=== PATIENT | female | born 1945 | race Hispanic/Latino ===

== ENCOUNTER 2018-07-04 04:53 | Emergency (ER) | payer OTHER, MEDICAID, SELFPAY ==
[2018-07-04 05:10] VITALS: BMI 32.3
--- NOTE | 2018-07-04 05:23 | ED_ITS ---
HPI - Female Genitourinary General Chief complaint: Urogenital-Female Stated complaint: Thinks has UTI Time Seen by Provider: 07/04/18 05:00 Source: patient Mode of arrival: ambulatory Limitations: no limitations History of Present Illness HPI Narrative: 73-year-old diabetic female presents with family in the chief complaint of dysuria, frequency and urgency as well as suprapubic tenderness for the past few days. She is convinced she has a urinary tract infection. She denies nausea or vomiting. She had a low-grade fever but denies shaking chills. Patient denies any runny nose, sore throat, chest pain or shortness of breath. She denies any back pain, vaginal bleeding or discharge. MD Complaint: dysuria, UTI and pelvic pain Onset (ago): day(s) Severity: mild Quality: Aching and Burning Duration: constant Relieving factors: none Exacerbating factors: urination Urinary symptoms: Difficulty Urinating, Dysuria, Foul Smelling Urine, Frequency and Urgency Associated symptoms: denies other symptoms Related Data Previous Rx's Medication Instructions Recorded cephalexin [Keflex] 500 mg PO QID 7 Days #28 cap 07/04/18 Allergies Allergy/AdvReac Type Severity Reaction Status Date / Time No Known Drug Allergies Allergy Verified 07/04/18 05:12 Review of Systems Review of Systems All systems reviewed & are unremarkable except as noted in HPI and below Constitutional Denies chills, Reports fever(s), Denies lethargy and Denies weakness Eyes Denies change in vision, Denies eye discharge, Denies irritation and Denies loss of vision ENT Ears, Nose, Mouth, and Throat: Denies change in voice, Denies neck pain and Denies sore throat Cardiovascular Denies chest pain, Denies irregular heart rhythm, Denies lightheadedness, Denies palpitations, Denies dyspnea, Denies dyspnea on exertion and Denies orthopnea Respiratory Denies cough, Denies dyspnea, Denies dyspnea on exertion and Denies wheezing Gastrointestinal Gastrointestinal: Denies abdominal pain, Denies change in bowel habits, Denies diarrhea, Denies nausea and Denies vomiting Genitourinary Denies hematuria, Reports urinary frequency, Reports dysuria, Denies flank pain , Denies urinary incontinence and Reports urinary urgency Musculoskeletal Denies neck pain Integumentary/Breasts Denies pruritus, Denies erythema, Denies rash and Denies wounds Neurologic Denies confusion, Denies loss of vision and Denies weakness Psychiatric Denies anxiety, Denies confusion, Denies depression, Denies homicidal ideation and Denies suicidal ideation Endocrine Denies palpitations Hematologic/Lymphatic Denies easy bruising Allergic/Immunologic Denies wheezing Exam Narrative Exam Narrative: Pleasant 73-year-old female in no obvious distress. Awake, alert and oriented. No rigors Initial Vital Signs Initial Vital Signs: Vital Signs Temperature 98.9 F 07/04/18 06:36 Pulse Rate 90 07/04/18 06:36 Respiratory Rate 16 07/04/18 06:36 Blood Pressure 120/48 L 07/04/18 06:36 Pulse Oximetry 95 07/04/18 06:36 Const General: cooperative and well developed Nutritional Appearance: well nourished Orientation: alert, awake, oriented x3 and not confused HENMT Head: normocephalic and atraumatic Ears: external ears normal and TM's normal bilaterally Nose: external nose normal and No nasal discharge Face and sinus: sinuses nontender, face symmetric, no sinus tenderness and No dry mucous membranes Mouth: oral mucosae normal and moist mucous membranes Teeth and gingiva: dentition normal Throat: tonsils normal and uvula midline Neck Neck: normal visual inspection, trachea midline, No lymphadenopathy, No midline deformity and No JVD Lymphatic: No lymphedema Chest Chest: normal inspection of the chest Cardio Rate: regular rate Rhythm: regular rhythm Heart Sounds: no click, no gallops, no murmurs and no rubs Pulses: normal peripheral pulses GI Inspection: non-distended Palpation: soft, no hepatosplenomegaly, No guarding, No pulsatile mass and tender (Mild suprapubic tenderness) Auscultation: normal bowel sounds Back/Spine/Pelvis Back: No CVA tenderness Cervical Spine: cervical ROM normal and No pain with cervical ROM Thoracic/Lumbar Spine: thoracic and lumbar spine normal to inspection Skin General: no rashes or lesions noted, No jaundice and No petechiae Neuro General: alert, oriented x3, gait normal and no focal motor deficits Speech: speech normal Extrem General: full ROM, no clubbing, cyanosis or edema, no pedal edema and no calf tenderness Course Orders Ordered: ED Orders 07/04/18 05:10 Urine Culture Stat Urine Microscopic Stat 07/04/18 05:27 Basic Metabolic Panel Stat Complete Blood Count AUTO DIFF Stat Discontinued Medications Hydrocodone Bitart/Acetaminophen ([place] 5/325) 1 tab PO NOW ONE Stop: 07/04/18 05:15 Last Admin: 07/04/18 05:39 Dose: 1 tab Cephalexin HCl (Keflex) 500 mg PO NOW ONE Stop: 07/04/18 05:15 Last Admin: 07/04/18 05:39 Dose: 500 mg Vital Signs - 8 hr 07/04/18 06:36 Temperature 98.9 F Pulse Rate 90 Respiratory Rate 16 Blood Pressure 120/48 L Pulse Oximetry 95 MDM - Female Genitourinary Lab Data Result diagrams: 07/04/18 05:27 07/04/18 05:27 Lab Results 07/04/18 07/04/18 07/04/18 Range/Units 05:10 05:27 05:27 WBC 6.8 (4.5-11.0) X10^3/uL RBC 3.72 L (4.0-5.2) X10^6/uL Hgb 10.7 L (12.0-16.0) g/dL Hct 31.2 L (36-46) % MCV 84.1 (80-100) fL MCH 28.8 (26-34) PG MCHC 34.3 (30-36) % RDW 13.8 (11.6-14.8) % Plt Count 245 (150-400) X10^3/uL Neut % (Auto) 83.4 H (50-75) % Lymph % (Auto) 7.7 L (25-40) % [place] % (Auto) 8.4 (3-14) % Eos % (Auto) 0.3 L (2-4) % Baso % (Auto) 0.2 (0-2) % Neut # (Auto) 5700 (2911-8901) /uL Sodium 140 (137-145) mmol/L Potassium 3.5 (3.4-5.1) mmol/L Chloride 107 (98-107) mmol/L Carbon Dioxide 24 (22-32) mmol/L BUN 23 H (7-17) mg/dL Creatinine 0.90 (0.52-1.04) mg/dL Estimated GFR > 60.0 (>60) mL/min BUN/Creatinine Ratio 25.6 H (6-22) Glucose 259 H (80-110) mg/dL Calcium 8.9 (8.4-10.2) mg/dL Urine RBC None seen (0-5/HPF) Urine WBC >100/hpf H (0-5/HPF) Ur Squamous Epith Cells 1-5 /hpf Urine Bacteria Many (>30) H (None) Ur Culture Indicated? Specimen cultured Micro UA Comment Not Reportable Urine Dip Bedside Urine Glucose Negative Bedside Urine Bilirubin - Negative Bedside Urine Ketone - Negative Urine Specific [place] 1.015 Bedside Urine Occult Blood +/- Bedside Urine pH 6.0 Bedside Urine Protein ++ 100 Bedside Urine Urobilinogen - Negative Bedside Urine Nitrite - Negative Bedside Urine Leukocytes ++ 125 Esterase Discharge Plan Departure Patient Disposition: Home Clinical Impression: Urinary tract infection Discharge Date/Time: 07/04/18 06:38 Interventions: ED Discharge Assessment Last Done: 07/04/18 06:36 Instructions: DI for Urinary Tract Infection (UTI) Activity Restrictions/Additional Instructions: *You have been diagnosed with [acute urinary tract infection ] *What to do: *Take medications as directed *Follow up with your primary care provider in 2-3 days, call for an appointment. Let them know you were seen in the Emergency Department and that we ask that you be seen in follow up *Return to ER if you should have any new, worsening or concerning symptoms , such as [ worsening pain, vomiting, increased or persistent fever, shaking chills, or other bothersome symptoms] Prescriptions: New cephalexin [Keflex] 500 mg capsule 500 mg PO QID 7 Days Qty: 28 RF: 0
[2018-07-04] MEDS: cephALEXin 250 MG CAPSULE 500 MG PO (05:39)
[2018-07-04] MEDS: HYDROCODONE/ACET 5/325 TABLET 1 TAB PO (05:39)
[2018-07-04 06:36] VITALS: BP 120/48; PULSE 90; RESP 16; TEMP 37.2; O2SAT 95
== END 2018-07-04 06:38 | disposition home or self-care (01) ==
PROVIDERS: Emergency Provider Emergency Medicine
DX: N39.0 Urinary tract infection, site not specified (principal)
CPT/HCPCS: 36415; 80048; 81003; 81015; 85025; 87086

== ENCOUNTER 2018-07-04 13:40 | Emergency (ER) | payer OTHER, MEDICAID, SELFPAY ==
[2018-07-04 05:18] LABS: RBC Urine None Seen (0-5/HPF)
[2018-07-04 05:22] LABS: Bacteria Urine Many (>30); Culture Indicated Urine Specimen Cultured; Squamous Epithelial Cell Urine 1-5 /HPF; WBC Urine >100/HPF (0-5/HPF)
[2018-07-04 05:36] LABS: Add Manual Diff / Slide Review NO; Basophils Percent Auto 0.2 % (0-2); Eosinophils Percent Auto 0.3 % (2-4); Hematocrit 31.2 % (36-46); Hemoglobin 10.7 g/dL (12.0-16.0); Lymphocytes Percent Auto 7.7 % (25-40); Mean Corpuscular HGB Conc 34.3 % (30-36); Mean Corpuscular Hemoglobin 28.8 PG (26-34); Mean Corpuscular Volume 84.1 fL (80-100); Monocytes Percent Auto 8.4 % (3-14); Neutrophils Absolute Auto 5700 /uL (3000-5900); Neutrophils Percent Auto 83.4 % (50-75); Platelet Count 245 X10^3/uL (150-400); Red Blood Cell Count 3.72 X10^6/uL (4.0-5.2); Red Cell Distribution Width 13.8 % (11.6-14.8); White Blood Cell Count 6.8 X10^3/uL (4.5-11.0)
[2018-07-04 05:47] LABS: BUN Creatinine Ratio 25.6 (6-22); Blood Urea Nitrogen 23 mg/dL (7-17); Calcium 8.9 mg/dL (8.4-10.2); Carbon Dioxide 24 mmol/L (22-32); Chloride 107 mmol/L (98-107); Estimated Glomerular Filt Rate > 60.0 mL/min (>60); Glucose 259 mg/dL (80-110); HEMOLYSIS < 15 (0-50); Potassium 3.5 mmol/L (3.4-5.1); Sodium 140 mmol/L (137-145)
[2018-07-04 13:48] VITALS: BP 135/56; PULSE 120; RESP 22; TEMP 38.5; O2SAT 91
[2018-07-04] MEDS: CEFTRIAXONE 1 GM/50 ML FROZ.PIGGY IV (13:57)
[2018-07-04 14:14] LABS: Add Manual Diff / Slide Review NO; Basophils Percent Auto 0.1 % (0-2); Eosinophils Percent Auto 0.1 % (2-4); Hematocrit 30.8 % (36-46); Hemoglobin 10.3 g/dL (12.0-16.0); Lymphocytes Percent Auto 3.3 % (25-40); Mean Corpuscular HGB Conc 33.5 % (30-36); Mean Corpuscular Hemoglobin 28.5 PG (26-34); Mean Corpuscular Volume 85.1 fL (80-100); Monocytes Percent Auto 4.8 % (3-14); Neutrophils Absolute Auto 5500 /uL (3000-5900); Neutrophils Percent Auto 91.7 % (50-75); Platelet Count 218 X10^3/uL (150-400); Red Blood Cell Count 3.62 X10^6/uL (4.0-5.2)
--- NOTE | 2018-07-04 14:16 | PC.NURSE ---
Pt down to 88% on room air. Placed on 2L oxygen nasal cannula. Improved to 98%.
[2018-07-04 14:28] LABS: Alanine Aminotransferase 26 IU/L (9-52); Albumin 3.8 g/dL (3.5-5.0); Albumin Globulin Ratio 1.4 (1.0-2.8); Alkaline Phosphatase 72 U/L (38-126); Aspartate Aminotransferase 16 IU/L (14-36); BUN Creatinine Ratio 24.5 (6-22); Bilirubin Total 1.3 mg/dL (0.2-1.3); Blood Urea Nitrogen 27 mg/dL (7-17); Calcium 8.6 mg/dL (8.4-10.2); Carbon Dioxide 21 mmol/L (22-32); Chloride 105 mmol/L (98-107); Estimated Glomerular Filt Rate 48.8 mL/min (>60); Globulin 2.8 g/dL (1.7-4.1); Glucose 480 mg/dL (80-110); HEMOLYSIS < 15 (0-50); Sodium 138 mmol/L (137-145); Total Protein 6.6 g/dL (6.3-8.2)
--- NOTE | 2018-07-04 14:29 | ED.NAVMDI ---
HPI - Nausea/Vomiting/Diarrhea General Chief complaint: Nausea/Vomiting/Diarrhea Stated complaint: Nausea/Vomiting Time Seen by Provider: 07/04/18 13:46 Source: patient, family, EMS and old records reviewed Limitations: no limitations History of Present Illness HPI Narrative: Patient is a 73-year-old female who presents with was nausea and 1 episode of vomiting. She was seen evaluated here 5:00 a.m. this morning diagnosed a UTI and started on Keflex. She has since developed increasing weakness and a fever. She denies any pain except for when she urinates. Urine this morning actually did not grow anything but she does have painful frequent urination and is requesting he is a restaurant now. Related Data Home Medications Medication Instructions Recorded Confirmed atorvastatin 40 mg PO QPM 07/04/18 07/04/18 ibuprofen 1 tab PO TIDWM 07/04/18 07/04/18 insulin NPH isoph U-100 human 20 units SUBCUT DAILY 07/04/18 07/04/18 [Humulin N NPH Insulin KwikPen] insulin regular human [Humulin R 10 units SUBCUT TID 07/04/18 07/04/18 Regular U-100 Insuln] lisinopril 1 tab PO DAILY 07/04/18 07/04/18 Previous Rx's Medication Instructions Recorded cephalexin [Keflex] 500 mg PO QID 7 Days #28 cap 07/04/18 Allergies Allergy/AdvReac Type Severity Reaction Status Date / Time No Known Drug Allergies Allergy Verified 07/04/18 05:12 Review of Systems Review of Systems All systems reviewed & are unremarkable except as noted in HPI and below Constitutional Reports body ache(s), Reports chills and Reports fever(s) ENT Ears, Nose, Mouth, and Throat: Denies change in voice, Denies neck pain and Denies sore throat Cardiovascular Denies chest pain, Denies irregular heart rhythm, Denies lightheadedness, Denies palpitations, Denies dyspnea, Denies dyspnea on exertion and Denies orthopnea Respiratory Denies cough, Denies dyspnea, Denies dyspnea on exertion and Denies wheezing Gastrointestinal Gastrointestinal: Reports vomiting (x1) Genitourinary Reports as per HPI Musculoskeletal Denies neck pain Integumentary/Breasts Denies pruritus, Denies erythema, Denies rash and Denies wounds Endocrine Denies palpitations Allergic/Immunologic Denies wheezing [facility] Medical History Diabetes (Acute) Exam Initial Vital Signs Initial Vital Signs: Vital Signs Temperature 101.3 F H 07/04/18 13:48 Pulse Rate 120 H 07/04/18 13:48 Respiratory Rate 22 07/04/18 13:48 Blood Pressure 135/56 L 07/04/18 13:48 Pulse Oximetry 91 07/04/18 13:48 GENERAL: Alert elderly overweight female cooperative no acute distress HEENT: Head atraumatic,EOMI, pupils reactive, face symmetric, CARDIOVASCULAR: Regular rate and rhythm without murmurs, rubs or gallops. RESPIRATORY: Breath sounds equal bilaterally, no wheezes rales or rhonchi. ABDOMEN: Soft, nontender. Normoactive bowel sounds all 4 quadrants. No guarding or rebound. : No CVA tenderness EXTREMITIES: Normal range of motion, no clubbing or edema. Neurovascularly intact NEUROLOGICAL: Alert and oriented x4.Normal gait and speech. Cranial nerves II through XII grossly intact. SKIN: Warm, dry, no laceration, no petechiae, no rashes or lesions. Course Orders Ordered: ED Orders 07/04/18 14:01 Urine Culture Stat Urine Microscopic Stat 07/04/18 14:05 Blood Culture Stat Complete Blood Count AUTO DIFF Stat Comprehensive Metabolic Panel Stat Lactate (Lactic Acid) Stat Procalcitonin Stat Discontinued Medications Acetaminophen (Tylenol) 650 mg PO NOW ONE Stop: 07/04/18 14:31 Last Admin: 07/04/18 14:38 Dose: 650 mg Ceftriaxone Sodium/Dextrose (Rocephin) 1 gm in 50 mls @ 100 mls/hr IV NOW ONE Stop: 07/04/18 14:15 Last Infusion: 07/04/18 14:41 Dose: 0 mls/hr Admin: 07/04/18 13:57 Dose: 100 mls/hr Sodium Chloride (Normal Saline 0.9%) 1,000 mls @ 1,000 mls/hr IV BOLUS ONE Stop: 07/04/18 15:28 Last Admin: 07/04/18 14:41 Dose: 1,000 mls/hr Vital Signs - 8 hr 07/04/18 13:48 07/04/18 14:38 07/04/18 15:10 Temperature 101.3 F H 101.3 F H 100.0 F H Pulse Rate 120 H Respiratory Rate 22 Blood Pressure 135/56 L Blood Pressure [Left Arm] Pulse Oximetry 91 07/04/18 15:33 07/04/18 16:29 Temperature Pulse Rate 111 H 101 H Respiratory Rate 20 18 Blood Pressure 126/45 L Blood Pressure [Left Arm] 134/51 L Pulse Oximetry 100 94 MDM - Nausea/Vomiting/Diarrhea Lab Data Attestation: I reviewed the patient's lab results. Result diagrams: 07/04/18 14:05 07/04/18 14:05 Lab Results 07/04/18 07/04/18 07/04/18 Range/Units 14:01 14:05 14:05 WBC 6.0 (4.5-11.0) X10^3/uL RBC 3.62 L (4.0-5.2) X10^6/uL Hgb 10.3 L (12.0-16.0) g/dL Hct 30.8 L (36-46) % MCV 85.1 (80-100) fL MCH 28.5 (26-34) PG MCHC 33.5 (30-36) % RDW 14.0 (11.6-14.8) % Plt Count 218 (150-400) X10^3/uL Neut % (Auto) 91.7 H (50-75) % Lymph % (Auto) 3.3 L (25-40) % [place] % (Auto) 4.8 (3-14) % Eos % (Auto) 0.1 L (2-4) % Baso % (Auto) 0.1 (0-2) % Neut # (Auto) 5500 (1716-9779) /uL Sodium (137-145) mmol/L Potassium (3.4-5.1) mmol/L Chloride (98-107) mmol/L Carbon Dioxide (22-32) mmol/L BUN (7-17) mg/dL Creatinine (0.52-1.04) mg/dL Estimated GFR (>60) mL/min BUN/Creatinine Ratio (6-22) Glucose (80-110) mg/dL Lactate (0.7-2.1) mmol/L Calcium (8.4-10.2) mg/dL Total Bilirubin (0.2-1.3) mg/dL AST (14-36) IU/L ALT (9-52) IU/L Alkaline Phosphatase (38-126) U/L Total Protein (6.3-8.2) g/dL Albumin (3.5-5.0) g/dL Globulin (1.7-4.1) g/dL Albumin/Globulin Ratio (1.0-2.8) Procalcitonin 1.24 H (<0.5) ng/mL Urine RBC 1-5/hpf (0-5/HPF) Urine WBC 30-100/hpf H (0-5/HPF) Ur Squamous Epith Cells 1-5 /hpf Ur Transition Epith Cell 0-1/hpf (0-5/HPF) Urine Bacteria Few (2-10) H D (None) Hyaline Casts 1-5/lpf (None) Ur Culture Indicated? Specimen cultured Micro UA Comment Not Reportable 07/04/18 07/04/18 Range/Units 14:05 14:05 WBC (4.5-11.0) X10^3/uL RBC (4.0-5.2) X10^6/uL Hgb (12.0-16.0) g/dL Hct (36-46) % MCV (80-100) fL MCH (26-34) PG MCHC (30-36) % RDW (11.6-14.8) % Plt Count (150-400) X10^3/uL Neut % (Auto) (50-75) % Lymph % (Auto) (25-40) % [place] % (Auto) (3-14) % Eos % (Auto) (2-4) % Baso % (Auto) (0-2) % Neut # (Auto) (8360-7029) /uL Sodium 138 (137-145) mmol/L Potassium 4.0 (3.4-5.1) mmol/L Chloride 105 (98-107) mmol/L Carbon Dioxide 21 L (22-32) mmol/L BUN 27 H (7-17) mg/dL Creatinine 1.10 H (0.52-1.04) mg/dL Estimated GFR 48.8 L (>60) mL/min BUN/Creatinine Ratio 24.5 H (6-22) Glucose 480 H D (80-110) mg/dL Lactate 2.0 (0.7-2.1) mmol/L Calcium 8.6 (8.4-10.2) mg/dL Total Bilirubin 1.3 (0.2-1.3) mg/dL AST 16 (14-36) IU/L ALT 26 (9-52) IU/L Alkaline Phosphatase 72 (38-126) U/L Total Protein 6.6 (6.3-8.2) g/dL Albumin 3.8 (3.5-5.0) g/dL Globulin 2.8 (1.7-4.1) g/dL Albumin/Globulin Ratio 1.4 (1.0-2.8) Procalcitonin (<0.5) ng/mL Urine RBC (0-5/HPF) Urine WBC (0-5/HPF) Ur Squamous Epith Cells Ur Transition Epith Cell (0-5/HPF) Urine Bacteria (None) Hyaline Casts (None) Ur Culture Indicated? Micro UA Comment Point of Care Testing Glucose POC 420 Urine Dip Bedside Urine Glucose 1000 mg/dl Bedside Urine Bilirubin - Negative Bedside Urine Ketone +/- 5 Urine Specific [place] 1.020 Bedside Urine Occult Blood + Bedside Urine pH 6.0 Bedside Urine Protein ++ 100 Bedside Urine Urobilinogen - Negative Bedside Urine Nitrite - Negative Bedside Urine Leukocytes - Negative Esterase MDM Narrative Medical decision making narrative: Patient initially febrile and tachycardic but awake alert and able to answer questions. Vitals quickly improved with IV fluids and Tylenol. She has eat [employer] while in the emergency department. She does not appear toxic or septic. No leukocytosis or elevated lactic acid. His she has signs and symptoms consistent with UTI she is given 1 dose of Rocephin in the ED. She likely just needs to start her antibiotics. The daughter is picking them up they are ready. Patient is ready and able to go home. She lives with the daughter I have discussed warning signs with the daughter and when to return to the ED. All questions have been addressed. Discharge Plan Departure Patient Disposition: Home Clinical Impression: Urinary tract infection Discharge Date/Time: 07/04/18 16:31 Interventions: ED Discharge Assessment Last Done: 07/04/18 16:29 Instructions: DI for Urinary Tract Infection (UTI) Activity Restrictions/Additional Instructions: *You have been diagnosed with bladder infection *What to do: Drink all water and Gatorade, fever control with Tylenol or ibuprofen *Continue to take medications as directed -fill and take Keflex as previously prescribed -Tylenol 650 mg every 4-6 hours if needed for fever or pain *Follow up with your primary care provider in 2-3 days *Return to ER if you should have increasing weakness not able to tolerate antibiotics not drinking fluids, increasing pain, increasing confusion or any new, worsening or concerning symptoms Prescriptions: No Action cephalexin [Keflex] 500 mg capsule 500 mg PO QID 7 Days Qty: 28 RF: 0 atorvastatin 40 mg tablet 40 mg PO QPM RF: 0 ibuprofen 800 mg tablet 1 tab PO TIDWM RF: 0 insulin regular human [Humulin R Regular U-100 Insuln] 100 unit/mL solution 10 units subcut TID RF: 0 lisinopril 5 mg tablet 1 tab PO DAILY RF: 0 insulin NPH isoph U-100 human [Humulin N NPH Insulin KwikPen] 100 unit/mL (3 mL) insulin pen 20 units subcut DAILY RF: 0
[2018-07-04 14:33] LABS: RBC Urine 1-5/HPF (0-5/HPF); WBC Urine 30-100/HPF (0-5/HPF)
[2018-07-04 14:34] LABS: Bacteria Urine Few (2-10); Culture Indicated Urine Specimen Cultured; Hyaline Casts Urine 1-5/LPF; Squamous Epithelial Cell Urine 1-5 /HPF; Transitional Epi Cells Urine 0-1/HPF (0-5/HPF)
[2018-07-04 14:38] VITALS: TEMP 38.5
[2018-07-04] MEDS: ACETAMINOPHEN 325 MG TABLET 650 MG PO (14:38)
[2018-07-04] MEDS: SODIUM CHLORIDE 0.9% 1,000 ML 1000 ML IV (14:41)
[2018-07-04 14:54] LABS: Procalcitonin 1.24 ng/mL (<0.5)
[2018-07-04 15:10] VITALS: TEMP 37.8
[2018-07-04 15:33] VITALS: BP 134/51; PULSE 111; RESP 20; O2SAT 100
[2018-07-04 16:29] VITALS: BP 126/45; PULSE 101; RESP 18; O2SAT 94
--- NOTE | 2018-07-06 16:23 | PC.NURSE ---
Tried follow up phone call. Pt did speak kyrgyz, unable to completed survey.
--- NOTE | 2018-07-24 11:07 | PC.NURSE ---
Late entry ; Normal saline bolus 1000 mL stopped 07/04/18 at 1531.
== END 2018-07-04 16:31 | disposition home or self-care (01) ==
PROVIDERS: Emergency Medicine; Emergency Provider Emergency Medicine
DX: N39.0 Urinary tract infection, site not specified (principal)
CPT/HCPCS: 36415; 80048; 80053; 81003; 81015; 83605; 84145; 85025; 87040; 87077; 87086; 87186; 93005; 96361; 96365; 99283; 99284

== ENCOUNTER 2018-08-17 12:36 | Inpatient (IN) | payer OTHER, MEDICAID, SELFPAY ==
[2018-08-17] VITALS (8 sets, daily range): BP systolic 103–147; BP diastolic 45–70; PULSE 91–104; RESP 15–22; TEMP 36.6–37.7; O2SAT 93–98; BMI 34.6; BMI 32.6
--- NOTE | 2018-08-17 12:52 | ED.ABDPAIN ---
HPI - Abdominal Pain <Thalia Teixeira PA-C - Last Filed: 08/17/18 16:02> General Chief Complaint: Abdominal Pain Stated Complaint: pain in stomach,loss of appetite Time Seen by Provider: 08/17/18 12:52 Source: patient and family Mode of arrival: ambulatory Limitations: language barrier History of Present Illness HPI narrative: This 73-year-old female is brought in by her daughter/caregiver secondary to worsening abdominal pain over about 2 weeks. Her daughter states that she was treated here for a UTILast month and although urinary pain resolved, her mom never seemed quite back to herself, seeming more tired, down, and has had decreased appetite since. This is very atypical for her, usually a hearty either. For the last 2 weeks, she has admitted to postprandial pain and so has wanted to avoid foods. Patient states that she will have pain almost immediately after eating that is sharp and lasts about 15 min or so. She does not have any difficulty swallowing. She does not have any problems with fluids but her daughter notes that normally mom loves coffee and has not been drinking this. Daughter states that last night pain lasted all evening and kept her mom awake, which is atypical so she brought her in today. Patient states that she has not had nausea or vomiting. She denies any persistent urinary symptoms (frequency is typical for her and at baseline). She has not had any bowel habit changes or blood in the stools. She takes 800 mg ibuprofen t.i.d. for many years for her arthritis. Daughter states that mom cannot walk without it and will not get out of bed so they have continued it. Patient denies any recent fever or other illness since last seen here. She denies chest pain or dyspnea or other new pain besides the abdominal pain. They have been noting high blood sugars up in the 400 range at home. She has been taking her insulin and got 20 units as usual this morning. Related Data Home Medications Medication Instructions Recorded Confirmed atorvastatin 40 mg PO QPM 07/04/18 08/17/18 ibuprofen 1 tab PO TIDWM 07/04/18 08/17/18 insulin NPH isoph U-100 human 20 units SUBCUT DAILY 07/04/18 08/17/18 [Humulin N NPH Insulin KwikPen] insulin regular human [Humulin R 10 units SUBCUT TID 07/04/18 08/17/18 Regular U-100 Insuln] lisinopril 1 tab PO DAILY 07/04/18 08/17/18 Allergies Allergy/AdvReac Type Severity Reaction Status Date / Time No Known Drug Allergies Allergy Verified 07/04/18 05:12 Review of Systems <Thalia Teixeira PA-C - Last Filed: 08/17/18 16:02> Review of Systems All systems reviewed & are unremarkable except as noted in HPI and below Exam <Thalia Teixeira PA-C - Last Filed: 08/17/18 16:02> Narrative Exam Narrative: GENERAL APPEARANCE: Patient sitting comfortably, in no distress. HEENT: PERRL, EOMI, no scleral icterus NECK: Supple LUNGS: Clear to auscultation bilaterally. HEART: Rate and rhythm regular, normal S1 and S2, no S3 or S4. ABDOMEN: Soft, nondistended, bowel sounds present x 4 quadrants, no masses palpable, no hepatosplenomegaly. Tender over the left upper to mid quadrant without guarding or rebound. No tenderness elsewhere. No CVAT EXTREMITIES: No edema, no cyanosis DERMATOLOGIC: No jaundice or exanthem NEUROLOGIC: Alert and oriented with normal speech and coordination Initial Vital Signs Initial Vital Signs: Vital Signs Temperature 98.3 F 08/17/18 12:48 Pulse Rate 99 H 08/17/18 12:48 Respiratory Rate 18 08/17/18 12:48 Blood Pressure 118/45 L 08/17/18 12:48 Pulse Oximetry 95 08/17/18 12:48 <Clem Robles DO - Last Filed: 08/17/18 17:05> Initial Vital Signs Initial Vital Signs: Vital Signs Temperature 98.3 F 08/17/18 12:48 Pulse Rate 99 H 08/17/18 12:48 Respiratory Rate 18 08/17/18 12:48 Blood Pressure 118/45 L 08/17/18 12:48 Pulse Oximetry 95 08/17/18 12:48 Course <SHASHANK Felix Last Filed: 08/17/18 16:02> Additional Information: Reviewed findings with attending Dr. Robles, patient is slightly acidotic, worsening hyperglycemia, elevated ketones (has not left urine yet), no anion gap. He advises admission given patient's worsening blood sugars, persistent and worsening abdominal pain. Spoke with Dr. Bocanegra blown film extrusion operator hospitalist who will see patient here (we have daughter waiting to translate). I was waiting on CT to discuss with her given change in the patient's creatinine clearance since last visit. She requested proceeding with CT. She will admit to ICU. CT results pending at time of transfer to ED Orders Ordered: ED Orders 08/17/18 12:54 Lactate (Lactic Acid) Stat Venous Blood Gas Stat 08/17/18 13:00 Complete Blood Count AUTO DIFF Stat Comprehensive Metabolic Panel Stat Ketones (Beta-Hydroxybutyrate) Stat Procalcitonin Stat Venous Blood Gas Stat 08/17/18 13:24 EKG-12 Lead Stat 08/17/18 13:37 CT abdomen pelvis w con Stat 08/17/18 14:25 Blood Culture Stat 08/17/18 15:00 Urine Culture Stat Urine Microscopic Stat 08/17/18 18:00 Basic Metabolic Panel Q4H 08/17/18 22:00 Basic Metabolic Panel Q4H 08/18/18 02:00 Basic Metabolic Panel Q4H 08/18/18 05:00 Complete Blood Count AUTO DIFF Routine 08/18/18 06:00 Basic Metabolic Panel Q4H Dextrose (D50w) 25 gm IV PRN PRN PRN Reason: Hypoglycemia Heparin Sodium (Porcine) (Heparin) 5,000 unit SUBCUT BID GANESH Sodium Chloride (Normal Saline 0.9%) 1,000 mls @ 150 mls/hr IV CONT GANESH Stop: 09/16/18 22:09 Last Admin: 08/17/18 16:00 Dose: 150 mls/hr Potassium Chloride 40 meq/ (Sodium Chloride) 520 mls @ 130 mls/hr IV NOW ONE Stop: 08/17/18 19:22 Last Admin: 08/17/18 16:27 Dose: Not Given Ceftriaxone Sodium/Dextrose (Rocephin) 1 gm in 50 mls @ 100 mls/hr IV Q24H GANESH Insulin Human Regular 100 unit (/ Sodium Chloride) 100 mls @ 6 mls/hr IV TITRATE GANESH; Protocol Last Admin: 08/17/18 16:26 Dose: 13.3 units/hr, 13.3 mls/hr Morphine Sulfate (Morphine) 2 mg IV Q4HR PRN PRN Reason: ABDOMINAL PAIN Discontinued Medications Sodium Chloride (Normal Saline 0.9%) 1,000 mls @ 1,000 mls/hr IV BOLUS ONE Stop: 08/17/18 13:53 Last Infusion: 08/17/18 13:57 Dose: 0 mls/hr Admin: 08/17/18 13:09 Dose: 1,000 mls/hr Sodium Chloride (Normal Saline 0.9%) 1,000 mls @ 1,000 mls/hr IV BOLUS ONE Stop: 08/17/18 14:52 Last Infusion: 08/17/18 14:58 Dose: 0 mls/hr Admin: 08/17/18 13:58 Dose: 1,000 mls/hr Potassium Chloride 20 meq/ (Sodium Chloride) 260 mls @ 130 mls/hr IV NOW ONE Stop: 08/17/18 16:29 Last Admin: 08/17/18 14:47 Dose: 130 mls/hr Insulin Human Regular (Humulin R) 10 unit IV NOW ONE Stop: 08/17/18 14:31 Last Admin: 08/17/18 14:38 Dose: 10 unit Vital Signs - 8 hr 08/17/18 12:48 08/17/18 13:14 08/17/18 14:00 Temperature 98.3 F Pulse Rate 99 H 91 H 99 H Respiratory Rate 18 18 15 Blood Pressure 118/45 L Blood Pressure [Left Arm] 103/49 L 126/49 L Pulse Oximetry 95 93 98 08/17/18 14:31 08/17/18 15:39 08/17/18 16:15 Temperature 97.9 F Pulse Rate 94 H 99 H 98 H Respiratory Rate 17 18 19 Blood Pressure 122/58 L 147/70 H Blood Pressure [Left Arm] 138/53 L Pulse Oximetry 98 96 97 <Clem Robles DO - Last Filed: 08/17/18 17:05> Orders Ordered: ED Orders 08/17/18 12:54 Lactate (Lactic Acid) Stat Venous Blood Gas Stat 08/17/18 13:00 Complete Blood Count AUTO DIFF Stat Comprehensive Metabolic Panel Stat Ketones (Beta-Hydroxybutyrate) Stat Procalcitonin Stat Venous Blood Gas Stat 08/17/18 13:24 EKG-12 Lead Stat 08/17/18 13:37 CT abdomen pelvis w con Stat 08/17/18 14:25 Blood Culture Stat 08/17/18 15:00 Urine Culture Stat Urine Microscopic Stat 08/17/18 18:00 Basic Metabolic Panel Q4H 08/17/18 22:00 Basic Metabolic Panel Q4H 08/18/18 02:00 Basic Metabolic Panel Q4H 08/18/18 05:00 Complete Blood Count AUTO DIFF Routine 08/18/18 06:00 Basic Metabolic Panel Q4H Dextrose (D50w) 25 gm IV PRN PRN PRN Reason: Hypoglycemia Heparin Sodium (Porcine) (Heparin) 5,000 unit SUBCUT BID GANESH Sodium Chloride (Normal Saline 0.9%) 1,000 mls @ 150 mls/hr IV CONT GANESH Stop: 09/16/18 22:09 Last Admin: 08/17/18 16:00 Dose: 150 mls/hr Potassium Chloride 40 meq/ (Sodium Chloride) 520 mls @ 130 mls/hr IV NOW ONE Stop: 08/17/18 19:22 Last Admin: 08/17/18 16:27 Dose: Not Given Ceftriaxone Sodium/Dextrose (Rocephin) 1 gm in 50 mls @ 100 mls/hr IV Q24H GANESH Insulin Human Regular 100 unit (/ Sodium Chloride) 100 mls @ 6 mls/hr IV TITRATE GANESH; Protocol Last Admin: 08/17/18 16:26 Dose: 13.3 units/hr, 13.3 mls/hr Morphine Sulfate (Morphine) 2 mg IV Q4HR PRN PRN Reason: ABDOMINAL PAIN Discontinued Medications Sodium Chloride (Normal Saline 0.9%) 1,000 mls @ 1,000 mls/hr IV BOLUS ONE Stop: 08/17/18 13:53 Last Infusion: 08/17/18 13:57 Dose: 0 mls/hr Admin: 08/17/18 13:09 Dose: 1,000 mls/hr Sodium Chloride (Normal Saline 0.9%) 1,000 mls @ 1,000 mls/hr IV BOLUS ONE Stop: 08/17/18 14:52 Last Infusion: 08/17/18 14:58 Dose: 0 mls/hr Admin: 08/17/18 13:58 Dose: 1,000 mls/hr Potassium Chloride 20 meq/ (Sodium Chloride) 260 mls @ 130 mls/hr IV NOW ONE Stop: 08/17/18 16:29 Last Admin: 08/17/18 14:47 Dose: 130 mls/hr Insulin Human Regular (Humulin R) 10 unit IV NOW ONE Stop: 08/17/18 14:31 Last Admin: 08/17/18 14:38 Dose: 10 unit Vital Signs - 8 hr 08/17/18 12:48 08/17/18 13:14 08/17/18 14:00 Temperature 98.3 F Pulse Rate 99 H 91 H 99 H Respiratory Rate 18 18 15 Blood Pressure 118/45 L Blood Pressure [Left Arm] 103/49 L 126/49 L Pulse Oximetry 95 93 98 08/17/18 14:31 08/17/18 15:39 08/17/18 16:15 Temperature 97.9 F Pulse Rate 94 H 99 H 98 H Respiratory Rate 17 18 19 Blood Pressure 122/58 L 147/70 H Blood Pressure [Left Arm] 138/53 L Pulse Oximetry 98 96 97 MDM - Abdominal Pain <Thalia Teixeira PA-C - Last Filed: 08/17/18 16:02> Lab Data Attestation: I reviewed the patient's lab results. Result diagrams: 08/17/18 13:00 08/17/18 13:00 Lab Results 08/17/18 08/17/18 08/17/18 Range/Units 12:54 13:00 13:00 WBC 11.8 H (4.5-11.0) X10^3/uL RBC 3.52 L (4.0-5.2) X10^6/uL Hgb 9.5 L (12.0-16.0) g/dL Hct 29.3 L (36-46) % MCV 83.3 (80-100) fL MCH 26.9 (26-34) PG MCHC 32.3 (30-36) % RDW 14.2 (11.6-14.8) % Plt Count 304 (150-400) X10^3/uL Neut % (Auto) 83.9 H (50-75) % Lymph % (Auto) 9.6 L (25-40) % [place] % (Auto) 6.3 (3-14) % Eos % (Auto) 0.0 L (2-4) % Baso % (Auto) 0.2 (0-2) % Neut # (Auto) 9900 H (1449-3726) /uL Sodium (137-145) mmol/L Potassium (3.4-5.1) mmol/L Chloride (98-107) mmol/L Carbon Dioxide (22-32) mmol/L BUN (7-17) mg/dL Creatinine (0.52-1.04) mg/dL Estimated GFR (>60) mL/min BUN/Creatinine Ratio (6-22) Glucose (80-110) mg/dL Lactate 1.6 (0.7-2.1) mmol/L Calcium (8.4-10.2) mg/dL Total Bilirubin (0.2-1.3) mg/dL AST (14-36) IU/L ALT (9-52) IU/L Alkaline Phosphatase (38-126) U/L Total Protein (6.3-8.2) g/dL Albumin (3.5-5.0) g/dL Globulin (1.7-4.1) g/dL Albumin/Globulin Ratio (1.0-2.8) Procalcitonin 2.77 H (<0.5) ng/mL Urine RBC (0-5/HPF) Urine WBC (0-5/HPF) Ur Squamous Epith Cells Urine Bacteria (None) Ur Culture Indicated? Micro UA Comment Ketones (<0.27) mmol/L 08/17/18 08/17/18 Range/Units 13:00 15:00 WBC (4.5-11.0) X10^3/uL RBC (4.0-5.2) X10^6/uL Hgb (12.0-16.0) g/dL Hct (36-46) % MCV (80-100) fL MCH (26-34) PG MCHC (30-36) % RDW (11.6-14.8) % Plt Count (150-400) X10^3/uL Neut % (Auto) (50-75) % Lymph % (Auto) (25-40) % [place] % (Auto) (3-14) % Eos % (Auto) (2-4) % Baso % (Auto) (0-2) % Neut # (Auto) (4632-1893) /uL Sodium 132 L (137-145) mmol/L Potassium 3.6 (3.4-5.1) mmol/L Chloride 97 L (98-107) mmol/L Carbon Dioxide 20 L (22-32) mmol/L BUN 33 H (7-17) mg/dL Creatinine 1.60 H (0.52-1.04) mg/dL Estimated GFR 31.7 L (>60) mL/min BUN/Creatinine Ratio 20.6 (6-22) Glucose 552 H* (80-110) mg/dL Lactate (0.7-2.1) mmol/L Calcium 8.9 (8.4-10.2) mg/dL Total Bilirubin 0.8 (0.2-1.3) mg/dL AST 13 L (14-36) IU/L ALT 19 (9-52) IU/L Alkaline Phosphatase 89 (38-126) U/L Total Protein 6.7 (6.3-8.2) g/dL Albumin 3.7 (3.5-5.0) g/dL Globulin 3.0 (1.7-4.1) g/dL Albumin/Globulin Ratio 1.2 (1.0-2.8) Procalcitonin (<0.5) ng/mL Urine RBC 1-5/hpf (0-5/HPF) Urine WBC 30-100/hpf H (0-5/HPF) Ur Squamous Epith Cells 1-5 /hpf Urine Bacteria Many (>30) H (None) Ur Culture Indicated? Specimen cultured Micro UA Comment Not Reportable Ketones 0.43 H (<0.27) mmol/L Point of care testing: Point of Care Testing Glucose POC 262 Urine Dip Bedside Urine Glucose 1000 mg/dl Bedside Urine Bilirubin - Negative Bedside Urine Ketone - Negative Urine Specific [place] 1.015 Bedside Urine Occult Blood +/- Bedside Urine pH 6.0 Bedside Urine Protein + 30 Bedside Urine Urobilinogen - Negative Bedside Urine Nitrite + Positive Bedside Urine Leukocytes + 70 Esterase ECG Data Attestation: I personally reviewed and interpreted this ECG as follows: (Sinus rhythm with rate 88, normal axis, nonspecific T wave changes) Prior ECG tracings: not available for review <Clem Robles DO - Last Filed: 08/17/18 17:05> Lab Data Lab Results 08/17/18 08/17/18 08/17/18 Range/Units 12:54 13:00 13:00 WBC 11.8 H (4.5-11.0) X10^3/uL RBC 3.52 L (4.0-5.2) X10^6/uL Hgb 9.5 L (12.0-16.0) g/dL Hct 29.3 L (36-46) % MCV 83.3 (80-100) fL MCH 26.9 (26-34) PG MCHC 32.3 (30-36) % RDW 14.2 (11.6-14.8) % Plt Count 304 (150-400) X10^3/uL Neut % (Auto) 83.9 H (50-75) % Lymph % (Auto) 9.6 L (25-40) % [place] % (Auto) 6.3 (3-14) % Eos % (Auto) 0.0 L (2-4) % Baso % (Auto) 0.2 (0-2) % Neut # (Auto) 9900 H (6522-9361) /uL Sodium (137-145) mmol/L Potassium (3.4-5.1) mmol/L Chloride (98-107) mmol/L Carbon Dioxide (22-32) mmol/L BUN (7-17) mg/dL Creatinine (0.52-1.04) mg/dL Estimated GFR (>60) mL/min BUN/Creatinine Ratio (6-22) Glucose (80-110) mg/dL Lactate 1.6 (0.7-2.1) mmol/L Calcium (8.4-10.2) mg/dL Total Bilirubin (0.2-1.3) mg/dL AST (14-36) IU/L ALT (9-52) IU/L Alkaline Phosphatase (38-126) U/L Total Protein (6.3-8.2) g/dL Albumin (3.5-5.0) g/dL Globulin (1.7-4.1) g/dL Albumin/Globulin Ratio (1.0-2.8) Procalcitonin 2.77 H (<0.5) ng/mL Urine RBC (0-5/HPF) Urine WBC (0-5/HPF) Ur Squamous Epith Cells Urine Bacteria (None) Ur Culture Indicated? Micro UA Comment Ketones (<0.27) mmol/L 08/17/18 08/17/18 Range/Units 13:00 15:00 WBC (4.5-11.0) X10^3/uL RBC (4.0-5.2) X10^6/uL Hgb (12.0-16.0) g/dL Hct (36-46) % MCV (80-100) fL MCH (26-34) PG MCHC (30-36) % RDW (11.6-14.8) % Plt Count (150-400) X10^3/uL Neut % (Auto) (50-75) % Lymph % (Auto) (25-40) % [place] % (Auto) (3-14) % Eos % (Auto) (2-4) % Baso % (Auto) (0-2) % Neut # (Auto) (1234-3426) /uL Sodium 132 L (137-145) mmol/L Potassium 3.6 (3.4-5.1) mmol/L Chloride 97 L (98-107) mmol/L Carbon Dioxide 20 L (22-32) mmol/L BUN 33 H (7-17) mg/dL Creatinine 1.60 H (0.52-1.04) mg/dL Estimated GFR 31.7 L (>60) mL/min BUN/Creatinine Ratio 20.6 (6-22) Glucose 552 H* (80-110) mg/dL Lactate (0.7-2.1) mmol/L Calcium 8.9 (8.4-10.2) mg/dL Total Bilirubin 0.8 (0.2-1.3) mg/dL AST 13 L (14-36) IU/L ALT 19 (9-52) IU/L Alkaline Phosphatase 89 (38-126) U/L Total Protein 6.7 (6.3-8.2) g/dL Albumin 3.7 (3.5-5.0) g/dL Globulin 3.0 (1.7-4.1) g/dL Albumin/Globulin Ratio 1.2 (1.0-2.8) Procalcitonin (<0.5) ng/mL Urine RBC 1-5/hpf (0-5/HPF) Urine WBC 30-100/hpf H (0-5/HPF) Ur Squamous Epith Cells 1-5 /hpf Urine Bacteria Many (>30) H (None) Ur Culture Indicated? Specimen cultured Micro UA Comment Not Reportable Ketones 0.43 H (<0.27) mmol/L Point of care testing: Point of Care Testing Glucose POC 262 Urine Dip Bedside Urine Glucose 1000 mg/dl Bedside Urine Bilirubin - Negative Bedside Urine Ketone - Negative Urine Specific [place] 1.015 Bedside Urine Occult Blood +/- Bedside Urine pH 6.0 Bedside Urine Protein + 30 Bedside Urine Urobilinogen - Negative Bedside Urine Nitrite + Positive Bedside Urine Leukocytes + 70 Esterase Discharge Plan Departure Patient Disposition: Admitted As Inpatient Clinical Impression: DKA (diabetic ketoacidoses), Postprandial abdominal pain in left upper quadrant Discharge Date/Time: 08/17/18 15:45 Interventions: ED Discharge Assessment Last Done: 08/17/18 15:39 Admit Date/Time: 08/17/18 15:07 Admit Provider: Radha Bocanegra <Clem Robles DO - Last Filed: 08/17/18 17:05> Cosign ED Attending Sabino Attestation: I was available for consultation during this patient's emergency department encounter
[2018-08-17] MEDS: SODIUM CHLORIDE 0.9% 1,000 ML 1000 ML IV ×2 (13:09→13:58)
[2018-08-17 13:20] LABS: Add Manual Diff / Slide Review NO; Basophils Percent Auto 0.2 % (0-2); Hematocrit 29.3 % (36-46); Hemoglobin 9.5 g/dL (12.0-16.0); Lymphocytes Percent Auto 9.6 % (25-40); Mean Corpuscular HGB Conc 32.3 % (30-36); Mean Corpuscular Hemoglobin 26.9 PG (26-34); Mean Corpuscular Volume 83.3 fL (80-100); Monocytes Percent Auto 6.3 % (3-14); Neutrophils Absolute Auto 9900 /uL (3000-5900); Neutrophils Percent Auto 83.9 % (50-75); Platelet Count 304 X10^3/uL (150-400); Red Blood Cell Count 3.52 X10^6/uL (4.0-5.2); Red Cell Distribution Width 14.2 % (11.6-14.8); White Blood Cell Count 11.8 X10^3/uL (4.5-11.0)
[2018-08-17 13:25] LABS: HEMOLYSIS < 15 (0-50)
[2018-08-17 13:30] LABS: Alanine Aminotransferase 19 IU/L (9-52); Albumin 3.7 g/dL (3.5-5.0); Albumin Globulin Ratio 1.2 (1.0-2.8); Alkaline Phosphatase 89 U/L (38-126); Aspartate Aminotransferase 13 IU/L (14-36); BUN Creatinine Ratio 20.6 (6-22); Bilirubin Total 0.8 mg/dL (0.2-1.3); Blood Urea Nitrogen 33 mg/dL (7-17); Calcium 8.9 mg/dL (8.4-10.2); Carbon Dioxide 20 mmol/L (22-32); Chloride 97 mmol/L (98-107); Estimated Glomerular Filt Rate 31.7 mL/min (>60); Potassium 3.6 mmol/L (3.4-5.1); Sodium 132 mmol/L (137-145); Total Protein 6.7 g/dL (6.3-8.2)
[2018-08-17 13:35] LABS: Lactate (Lactic Acid) 1.6 mmol/L (0.7-2.1)
[2018-08-17 13:37] LABS: Ketones (Beta-Hydroxybutyrate) 0.43 mmol/L (<0.27)
--- NOTE | 2018-08-17 13:37 | DI.CT.S_ITS ---
PROCEDURE: CT ABDOMEN PELVIS W CON INDICATIONS: L. UQ, mid pain, post prandial TECHNIQUE: After the administration of intravenous contrast, 5 mm thick sections acquired from the diaphragm to the symphysis. 5 mm coronal and sagittal reformats were acquired. For radiation dose reduction, the following was used: automated exposure control, adjustment of mA and/or kV according to patient size. COMPARISON: None. FINDINGS: Image quality: Mild motion is present, limiting areas evaluation. ABDOMEN: Lung bases: Lung bases are clear. Heart size is normal. Solid organs: Liver is normal in size and enhancement. Gallbladder is unremarkable. Biliary system is non dilated. Pancreas enhances normally. Spleen is normal in size and enhancement. 8mm left adrenal nodule is present. Left kidney demonstrates a slightly edematous appearance. Contrast enhancement is somewhat heterogeneous. No nephro or ureterolithiasis. Peritoneum and bowel: Bowel loops demonstrate normal wall thickness and caliber. No free fluid or air. Nodes and vessels: No retroperitoneal or mesenteric adenopathy by size criteria. Aorta and inferior vena cava are normal in size. Miscellaneous: No ventral hernias. PELVIS: Genitourinary: Bladder wall thickness is normal. Miscellaneous: No inguinal hernias or adenopathy. Bones: No suspicious bony lesions. No vertebral body compression fractures. IMPRESSION: 1. Slightly edematous appearance of the left kidney with perirenal stranding and slight heterogeneous appearance of enhancement. Although motion is present within this region, limiting evaluation of contrast enhancement, overall appearance raises concern for pyelonephritis. Recommend correlation to urinalysis. 2. 8mm left adrenal nodule. It is overall nonspecific on the basis of this examination no priors are available for comparison. Recommend interval imaging followup as indicated. Dictated by: Bess Jacobs M.D. on 08/17/2018 at 15:50 Approved by: Bess Jacobs M.D. on 08/17/2018 at 15:56
[2018-08-17 13:41] LABS: Glucose 552 mg/dL (80-110)
[2018-08-17 13:47] LABS: Procalcitonin 2.77 ng/mL (<0.5)
[2018-08-17 13:49] LABS: HCO3 VBG 20 mmol/L (24-28); Oxygen Saturation VBG 97 % (70-75); PCO2 VBG 34.4 mmHg (45-50); PO2 VBG 91 mmHg (35-45); Total CO2 VBG 21 mmol/L (24-29); pH VBG 7.37 (7.31-7.41)
--- NOTE | 2018-08-17 14:08 | PC.NURSE ---
Dr Bocanegra here to evaluate pt for admit. 2nd liter NS up and running
--- NOTE | 2018-08-17 14:31 | P.HP_ITS ---
History of Present Illness Date Patient Seen: 08/17/18 Time Patient Seen: 14:29 Chief complaint: pain in stomach,loss of appetite Narrative: 73-year-old female with past medical history insulin-dependent diabetes mellitus, hypertension, hyperlipidemia, osteoporosis, and osteoarthritis presented to emergency department with abdominal pain. Patient is Citizen Of [place]-speaking, with her daughter, who is her caregiver, at bedside providing most of the history and interpreting. As per patient and the daughter , patient has developed left lower quadrant abdominal pain for about 5 days. This pain is in left lower quadrant region, pressure-like, nonradiating, 7/10 duration. The pain occurs when patient eats, causing patient to decreased p.o. intake in avoidance of pain. The pain would last anywhere from 0.5 hr to 1 hr with each occurrence, however was constant throughout the night last night prior to admission. Patient denies any fevers or chills, nausea or vomiting, diarrhea or constipation. Patient denies any melenic stools or bright red blood per rectum. Patient denies any dysuria, hematuria. As per records, patient was treated for UTI with Keflex on 07/04/2018 ED presentation. For the past few days, as per family, patient's p.o. has significantly decreased, although her blood glucose has been on the rise. One day prior to admission patient's blood glucose has been consistently elevated 300 to 500s, and did not decrease with doubling the Humulin R dose of insulin. On admission to the hospital, patient's vital signs are stable. Lab work revealed WBCs of 11.8, hemoglobin 9.5, hematocrit 29.3, platelets 304. Sodium is 132, potassium 3.6, chloride 97, bicarb 20, BUN 33, creatinine 1.6, glucose 552. LFTs were normal. Lactate 1.6, procalcitonin 2.7, VBG showing pH of 7.36. Toxicology positive for ketones at 0.43. Anion gap 15. Patient was given 1 L NS bolus in ED and is admitted for DKA management and further workup of abdominal pain. Patient History Medical History DKA (diabetic ketoacidoses) (Acute) HLD (hyperlipidemia) (Chronic) HTN (hypertension) (Chronic) Insulin dependent diabetes mellitus (Chronic) Osteoarthritis (Chronic) Osteoporosis (Chronic) Diabetes (Acute) Family & Social History Safety & Behavioral: Feels Safe in Current Yes Environment Tobacco & Substance use: Smoking Status Never smoker alcohol intake frequency Denies Substance Use Type does not use Meds Home Medications Medication Instructions Recorded Confirmed Type atorvastatin 40 mg PO QPM 07/04/18 08/17/18 History ibuprofen 1 tab PO TIDWM 07/04/18 08/17/18 History insulin NPH isoph U-100 human 20 units SUBCUT DAILY 07/04/18 08/17/18 History [Humulin N NPH Insulin KwikPen] insulin regular human [Humulin R 10 units SUBCUT TID 07/04/18 08/17/18 History Regular U-100 Insuln] lisinopril 1 tab PO DAILY 07/04/18 08/17/18 History Allergies Allergy/AdvReac Type Severity Reaction Status Date / Time No Known Drug Allergies Allergy Verified 07/04/18 05:12 Review of Systems Review of Systems 10-point ROS reviewed and found negative with exception of as above Exam Vital Signs (past 8 hours): - 08/17/18 12:48 08/17/18 13:14 08/17/18 14:00 Temperature 98.3 F Pulse Rate 99 H 91 H 99 H Respiratory Rate 18 18 15 Blood Pressure 118/45 L Blood Pressure [Left Arm] 103/49 L 126/49 L Pulse Oximetry 95 93 98 Oxygen Delivery Method Room Air Narrative Exam Narrative: General: No acute distress, AAO x3 HEENT: PERRLA bilaterally, dry mucous membranes Neck: Supple, no LAD or JVD CV: Regular rate rhythm, no murmurs or gallops GI: Positive tenderness to palpation in left lower quadrant. Positive bowel sounds in all quadrants. No organomegaly Musculoskeletal: Normal range of motion Extremities: No edema noted Skin: No bruising or lesions noted Neuro: No focal deficits Psych: Mood is appropriate, no agitation Objective Labs Result Diagrams: 08/17/18 13:00 08/17/18 13:00 Labs: Laboratory Results - last 24 hr 08/17/18 08/17/18 08/17/18 12:54 13:00 13:00 WBC 11.8 H RBC 3.52 L Hgb 9.5 L Hct 29.3 L MCV 83.3 MCH 26.9 MCHC 32.3 RDW 14.2 Plt Count 304 Neut % (Auto) 83.9 H Lymph % (Auto) 9.6 L [place] % (Auto) 6.3 Eos % (Auto) 0.0 L Baso % (Auto) 0.2 Neut # (Auto) 9900 H Sodium Potassium Chloride Carbon Dioxide BUN Creatinine Estimated GFR BUN/Creatinine Ratio Glucose Lactate 1.6 Calcium Total Bilirubin AST ALT Alkaline Phosphatase Total Protein Albumin Globulin Albumin/Globulin Ratio Procalcitonin 2.77 H Ketones 08/17/18 13:00 WBC RBC Hgb Hct MCV MCH MCHC RDW Plt Count Neut % (Auto) Lymph % (Auto) [place] % (Auto) Eos % (Auto) Baso % (Auto) Neut # (Auto) Sodium 132 L Potassium 3.6 Chloride 97 L Carbon Dioxide 20 L BUN 33 H Creatinine 1.60 H Estimated GFR 31.7 L BUN/Creatinine Ratio 20.6 Glucose 552 H* Lactate Calcium 8.9 Total Bilirubin 0.8 AST 13 L ALT 19 Alkaline Phosphatase 89 Total Protein 6.7 Albumin 3.7 Globulin 3.0 Albumin/Globulin Ratio 1.2 Procalcitonin Ketones 0.43 H Assessment & Plan Plan: Assessment/Plan Narrative: 73-year-old female with past medical history insulin-dependent diabetes mellitus , hypertension, hyperlipidemia, osteoporosis, and osteoarthritis presented to emergency department with abdominal pain. She was found to be in diabetic ketoacidosis and with acute kidney injury. She is admitted for further management of DKA as well as BESSY and further workup of abdominal pain. 1. Diabetic ketoacidosis - blood glucose 552, ketones 0.43, pH 7.36, bicarb 20, AG 15 - will admit patient to ICU and initiate insulin drip per DKA protocol - patient received 1 L NS bolus in ED, will continue 0.9 NS at 150 cc/hour with K rider - will continue blood glucose checks q.1 hour, and BMP q.4 hours until anion gap closes and blood glucose normalizes - Zofran IV as needed for nausea, morphine IV as needed for pain 2. LLQ abdominal pain - differentials: Pyelonephritis versus diverticulitis versus lithiasis - WBC 11.8, patient is afebrile and hemodynamically stable - lactic acid 1.6, but procalcitonin is 2.7 - will get CT abdomen pelvis with contrast to look for the cause of abdominal pain - if infectious etiology is suspected, will initiate IV antibiotics 3. Acute kidney injury - likely due to dehydration, given patient's decrease in p.o. intake - BUN 33, creatinine 1.6. Baseline creatinine is 1.0 one month ago - patient received 1 L NS bolus in ED, will continue maintenance of 0.9 NS at 150 cc an hour with K rider - monitor renal function - avoid nephrotoxins 4. Hypertension - patient is on lisinopril 20 mg daily - will hold lisinopril in light of acute kidney injury, and give labetalol 10 mg IV as needed for blood pressure >180/100 - monitor blood pressure 5. Hyperlipidemia - resume atorvastatin 40 mg q.h.s. 6. Osteoarthritis - patient takes ibuprofen 3 times a day - will hold ibuprofen in light of acute kidney injury, and instead give Tylenol 650 mg q.6 hours as needed for pain, as well as morphine IV as needed for abdominal pain 7. Insulin-dependent diabetes mellitus - patient takes Humulin N 20 units daily and Humulin R 10 units t.i.d. at home - will hold subcu insulin in light of insulin drip at this time but resume once patient is transitioned to p.o. - will get hemoglobin A1c level
[2018-08-17] MEDS: INSULIN REGULAR 100 UNIT/ML 3 ML VIAL 10 UNIT IV (14:38)
[2018-08-17] MEDS: POTASSIUM CHLORIDE 20 MEQ in SODIUM CHLORIDE 0.9% 250 ML 130 ML IV (14:47)
[2018-08-17 15:19] LABS: Bacteria Urine Many (>30); Culture Indicated Urine Specimen Cultured; RBC Urine 1-5/HPF (0-5/HPF); Squamous Epithelial Cell Urine 1-5 /HPF; WBC Urine 30-100/HPF (0-5/HPF)
[2018-08-17] MEDS: SODIUM CHLORIDE 0.9% 1,000 ML 150 ML IV (16:00)
[2018-08-17] MEDS: INSULIN REGULAR, HUMAN 100 UNIT in SODIUM CHLORIDE 0.9% 100 ML 13.3 ML IV (16:26)
--- NOTE | 2018-08-17 16:40 | PC.NURSE ---
1600- Patient arrived via stretcher from Emergency. Patient is alert and in no distress. Patient is comoran speaking but does understand azeri. Patient oriented to the room and call cesar. Patient uses a cane for ambulation. Vitals are WNL second IV started in the Left antecube. Insulin gtt started per orders.
[2018-08-17] MEDS: CEFTRIAXONE 1 GM/50 ML FROZ.PIGGY IV (18:00)
[2018-08-17 18:24] LABS: BUN Creatinine Ratio 21.5 (6-22); Blood Urea Nitrogen 28 mg/dL (7-17); Calcium 8.6 mg/dL (8.4-10.2); Carbon Dioxide 21 mmol/L (22-32); Chloride 106 mmol/L (98-107); Estimated Glomerular Filt Rate 40.3 mL/min (>60); Glucose 104 mg/dL (80-110); HEMOLYSIS < 15 (0-50); Potassium 3.6 mmol/L (3.4-5.1); Sodium 142 mmol/L (137-145)
[2018-08-17 18:26] LABS: Hemoglobin A1C% w Est Avg Glu 11.7 % (4.0-6.0)
--- NOTE | 2018-08-17 18:50 | PC.NURSE ---
1830- Blood Glucose 105, maint. IV changed to D5.45NS. Potassium is at 3.6, KRider up per order.
[2018-08-17] MEDS: POTASSIUM CHLORIDE 40 MEQ in SODIUM CHLORIDE 0.9% 500 ML 130 ML IV (19:00)
[2018-08-17] MEDS: DEXTROSE 5%-0.45% NS 1,000 ML 133 ML IV (20:08)
[2018-08-17] MEDS: HEPARIN 5,000 UNIT/ML VIAL 5000 UNIT SUBCUT (21:13)
[2018-08-17 22:18] LABS: BUN Creatinine Ratio 22.7 (6-22); Blood Urea Nitrogen 25 mg/dL (7-17); Calcium 8.3 mg/dL (8.4-10.2); Carbon Dioxide 18 mmol/L (22-32); Chloride 108 mmol/L (98-107); Estimated Glomerular Filt Rate 48.8 mL/min (>60); Glucose 173 mg/dL (80-110); HEMOLYSIS < 15 (0-50); Potassium 3.9 mmol/L (3.4-5.1); Sodium 137 mmol/L (137-145)
--- NOTE | 2018-08-18 00:51 | PC.NURSE ---
Addendum entered by Dianelys Montana R.N. 08/18/18 03:50: Leyda COLON updated on most recent BG of 136 and labs. Verbal order to ignore protocol for IVF change and to keep D51/2NS with a rate increase to 150 mL/hour. Plan to re-evaluate with lab results at 0600. K+ 3.5, Krider infusing per protocol. Original Note: Addendum entered by Dianelys Montana R.N. 08/18/18 00:59: 0100 CBG 164. Insulin GTT decreased to 4.4 units/hour per protocol. BG within goal range X 4 hours. Will recheck every 2 hours while on GTT per protocol. Electrolytes due at 0200. Original Note: Received patient resting in bed. Bedding, gown, and undergarments heavily saturated in urine. Pt up to BSC with SBA and voided an additional 200 mL of cloudy urine. Full linen and gown change, pt placed in brief. 0000 CBG 175, within goal range. No changes to insulin GTT per protocol, continued at 7.1 units an hour. VSS, afebrile. Denies pain. Pt is [place] speaking, difficult to determine how much Ukrainian she understands but she is able to make her needs known and using the call light.
[2018-08-18 02:38] LABS: Blood Urea Nitrogen 22 mg/dL (7-17); Calcium 8.1 mg/dL (8.4-10.2); Carbon Dioxide 19 mmol/L (22-32); Chloride 108 mmol/L (98-107); Estimated Glomerular Filt Rate 54.5 mL/min (>60); Glucose 152 mg/dL (80-110); HEMOLYSIS < 15 (0-50); Potassium 3.5 mmol/L (3.4-5.1); Sodium 136 mmol/L (137-145)
[2018-08-18 03:00] VITALS: BP 122/60; PULSE 84; RESP 18; TEMP 36.6; O2SAT 96
[2018-08-18] MEDS: POTASSIUM CHLORIDE 40 MEQ in SODIUM CHLORIDE 0.9% 500 ML 130 ML IV (03:30)
[2018-08-18 06:08] LABS: Acinetobacter baumannii Not Detected (Not Detect); Enterococcus species Not Detected (Not Detect); Listeria monocytogenes Not Detected (Not Detect); Staphylococcus species Not Detected (Not Detect); Streptococcus agalactiae (Gr B Not Detected (Not Detect); Streptococcus pneumonia Not Detected (Not Detect); Streptococcus pyogenes (Gr A) Not Detected (Not Detect); Streptococcus species Not Detected (Not Detect)
[2018-08-18 06:09] LABS: Enterobacteriaceae species Detected (Not Detect); KPC (carbapenem-resist gene) Not Detected (Not Detect)
[2018-08-18 06:10] LABS: Candida albicans Not Detected (Not Detect); Candida glabrata Not Detected (Not Detect); Candida krusei Not Detected (Not Detect); Candida parapsilosis Not Detected (Not Detect); Candida tropicalis Not Detected (Not Detect); E. coli Detected (Not Detect); Enterobacter cloacae complex Not Detected (Not Detect); Haemophilus influenzae Not Detected (Not Detect); Neisseria meningitidis Not Detected (Not Detect); Proteus species Not Detected (Not Detect); Pseudomonas aeruginosa Not Detected (Not Detect); Serratia marcescens Not Detected (Not Detect)
[2018-08-18 07:38] LABS: Add Manual Diff / Slide Review NO; Basophils Percent Auto 0.1 % (0-2); Eosinophils Percent Auto 0.3 % (2-4); Hematocrit 26.2 % (36-46); Hemoglobin 8.7 g/dL (12.0-16.0); Lymphocytes Percent Auto 13.9 % (25-40); Mean Corpuscular HGB Conc 33.3 % (30-36); Mean Corpuscular Hemoglobin 27.2 PG (26-34); Mean Corpuscular Volume 81.7 fL (80-100); Monocytes Percent Auto 11.2 % (3-14); Neutrophils Absolute Auto 7800 /uL (3000-5900); Neutrophils Percent Auto 74.5 % (50-75); Platelet Count 249 X10^3/uL (150-400); Red Blood Cell Count 3.21 X10^6/uL (4.0-5.2); Red Cell Distribution Width 14.1 % (11.6-14.8); White Blood Cell Count 10.4 X10^3/uL (4.5-11.0)
--- NOTE | 2018-08-18 07:54 | P.PN_ITS ---
Subjective Date Patient Seen: 08/18/18 Time Patient Seen: 07:52 Interval history: Follow-up on DKA and left lower quadrant abdominal pain Patient seen at bedside. Abdominal pain is resolving. She was on DKA protocol , insulin drip and IV fluids all through the night. This morning patient's anion gap is 9. She is tolerating p.o.. Will transition patient to subq insulin. CT abdomen/pelvis revealed concern for pyelonephritis as well as 8 mm left adrenal nodule. No fever, chills, nausea, vomiting overnight. Exam Vital Signs (past 8 hours): - 08/18/18 03:00 Temperature 97.9 F Pulse Rate 84 Respiratory Rate 18 Blood Pressure 122/60 Pulse Oximetry 96 Oxygen Delivery Method Room Air Oxygen Flow Rate 0 Narrative Exam Narrative: General: No acute distress, AAO x3 HEENT: PERRLA bilaterally, dry mucous membranes Neck: Supple, no LAD or JVD CV: Regular rate rhythm, no murmurs or gallops GI: No tenderness to palpation. Positive bowel sounds in all quadrants. No organomegaly Musculoskeletal: Normal range of motion Extremities: No edema noted Skin: No bruising or lesions noted Neuro: No focal deficits Psych: Mood is appropriate, no agitation Objective Labs Result Diagrams: 08/18/18 05:00 08/18/18 02:04 Labs: Laboratory Results - last 24 hr 08/17/18 08/17/18 08/17/18 12:54 13:00 13:00 WBC 11.8 H RBC 3.52 L Hgb 9.5 L Hct 29.3 L MCV 83.3 MCH 26.9 MCHC 32.3 RDW 14.2 Plt Count 304 Neut % (Auto) 83.9 H Lymph % (Auto) 9.6 L [place] % (Auto) 6.3 Eos % (Auto) 0.0 L Baso % (Auto) 0.2 Neut # (Auto) 9900 H Sodium Potassium Chloride Carbon Dioxide BUN Creatinine Estimated GFR BUN/Creatinine Ratio Glucose Hemoglobin A1c Lactate 1.6 Calcium Total Bilirubin AST ALT Alkaline Phosphatase Total Protein Albumin Globulin Albumin/Globulin Ratio Procalcitonin 2.77 H Urine RBC Urine WBC Ur Squamous Epith Cells Urine Bacteria Ur Culture Indicated? Micro UA Comment Nasal Screen MRSA (PCR) Ketones A. baumannii (PCR) Yani albicans (PCR) C. glabrata (PCR) C. krusei (PCR) C. parapsilosis (PCR) C. tropicalis (PCR) Enterobacteriac sp PCR E. cloacae complex PCR Enterococcus sp PCR E. coli (PCR) H. influenzae (PCR) Klebsiella oxytoca PCR Klebsiella pneumoniae List. monocytogenes PCR N. meningitidis (PCR) Proteus species (PCR) Serratia marcescens PCR Staphylococcus sp PCR Staph aureus (PCR) mecA-Methicil Res Gene Streptococcus sp PCR Group A Strep (PCR) Strep agalactiae (PCR) Strep pneumoniae (PCR) P. aeruginosa (PCR) Brianna/B-Vanco Res Genes KPC-Carbap Res Gene PCR 08/17/18 08/17/18 08/17/18 13:00 13:00 15:00 WBC RBC Hgb Hct MCV MCH MCHC RDW Plt Count Neut % (Auto) Lymph % (Auto) [place] % (Auto) Eos % (Auto) Baso % (Auto) Neut # (Auto) Sodium 132 L Potassium 3.6 Chloride 97 L Carbon Dioxide 20 L BUN 33 H Creatinine 1.60 H Estimated GFR 31.7 L BUN/Creatinine Ratio 20.6 Glucose 552 H* Hemoglobin A1c Lactate Calcium 8.9 Total Bilirubin 0.8 AST 13 L ALT 19 Alkaline Phosphatase 89 Total Protein 6.7 Albumin 3.7 Globulin 3.0 Albumin/Globulin Ratio 1.2 Procalcitonin Urine RBC 1-5/hpf Urine WBC 30-100/hpf H Ur Squamous Epith Cells 1-5 /hpf Urine Bacteria Many (>30) H Ur Culture Indicated? Specimen cultured Micro UA Comment Not Reportable Nasal Screen MRSA (PCR) Ketones 0.43 H A. baumannii (PCR) Not detected Yani albicans (PCR) Not detected C. glabrata (PCR) Not detected C. krusei (PCR) Not detected C. parapsilosis (PCR) Not detected C. tropicalis (PCR) Not detected Enterobacteriac sp PCR Detected H E. cloacae complex PCR Not detected Enterococcus sp PCR Not detected E. coli (PCR) Detected H H. influenzae (PCR) Not detected Klebsiella oxytoca PCR Not detected Klebsiella pneumoniae Not detected List. monocytogenes PCR Not detected N. meningitidis (PCR) Not detected Proteus species (PCR) Not detected Serratia marcescens PCR Not detected Staphylococcus sp PCR Not detected Staph aureus (PCR) Not detected mecA-Methicil Res Gene Not Reportable Streptococcus sp PCR Not detected Group A Strep (PCR) Not detected Strep agalactiae (PCR) Not detected Strep pneumoniae (PCR) Not detected P. aeruginosa (PCR) Not detected Brianna/B-Vanco Res Genes Not Reportable KPC-Carbap Res Gene PCR Not detected 08/17/18 08/17/18 08/17/18 18:05 18:05 21:57 WBC RBC Hgb Hct MCV MCH MCHC RDW Plt Count Neut % (Auto) Lymph % (Auto) [place] % (Auto) Eos % (Auto) Baso % (Auto) Neut # (Auto) Sodium 142 D 137 Potassium 3.6 3.9 Chloride 106 108 H Carbon Dioxide 21 L 18 L BUN 28 H 25 H Creatinine 1.30 H 1.10 H Estimated GFR 40.3 L 48.8 L BUN/Creatinine Ratio 21.5 22.7 H Glucose 104 D 173 H Hemoglobin A1c 11.7 H Lactate Calcium 8.6 8.3 L Total Bilirubin AST ALT Alkaline Phosphatase Total Protein Albumin Globulin Albumin/Globulin Ratio Procalcitonin Urine RBC Urine WBC Ur Squamous Epith Cells Urine Bacteria Ur Culture Indicated? Micro UA Comment Nasal Screen MRSA (PCR) Ketones A. baumannii (PCR) Yani albicans (PCR) C. glabrata (PCR) C. krusei (PCR) C. parapsilosis (PCR) C. tropicalis (PCR) Enterobacteriac sp PCR E. cloacae complex PCR Enterococcus sp PCR E. coli (PCR) H. influenzae (PCR) Klebsiella oxytoca PCR Klebsiella pneumoniae List. monocytogenes PCR N. meningitidis (PCR) Proteus species (PCR) Serratia marcescens PCR Staphylococcus sp PCR Staph aureus (PCR) mecA-Methicil Res Gene Streptococcus sp PCR Group A Strep (PCR) Strep agalactiae (PCR) Strep pneumoniae (PCR) P. aeruginosa (PCR) Brianna/B-Vanco Res Genes KPC-Carbap Res Gene PCR 08/17/18 08/18/18 08/18/18 Unknown 02:04 05:00 WBC 10.4 RBC 3.21 L Hgb 8.7 L Hct 26.2 L MCV 81.7 MCH 27.2 MCHC 33.3 RDW 14.1 Plt Count 249 Neut % (Auto) 74.5 Lymph % (Auto) 13.9 L [place] % (Auto) 11.2 Eos % (Auto) 0.3 L Baso % (Auto) 0.1 Neut # (Auto) 7800 H Sodium 136 L Potassium 3.5 Chloride 108 H Carbon Dioxide 19 L BUN 22 H Creatinine 1.00 Estimated GFR 54.5 L BUN/Creatinine Ratio 22.0 Glucose 152 H Hemoglobin A1c Lactate Calcium 8.1 L Total Bilirubin AST ALT Alkaline Phosphatase Total Protein Albumin Globulin Albumin/Globulin Ratio Procalcitonin Urine RBC Urine WBC Ur Squamous Epith Cells Urine Bacteria Ur Culture Indicated? Micro UA Comment Nasal Screen MRSA (PCR) Negative for mrsa Ketones A. baumannii (PCR) Yani albicans (PCR) C. glabrata (PCR) C. krusei (PCR) C. parapsilosis (PCR) C. tropicalis (PCR) Enterobacteriac sp PCR E. cloacae complex PCR Enterococcus sp PCR E. coli (PCR) H. influenzae (PCR) Klebsiella oxytoca PCR Klebsiella pneumoniae List. monocytogenes PCR N. meningitidis (PCR) Proteus species (PCR) Serratia marcescens PCR Staphylococcus sp PCR Staph aureus (PCR) mecA-Methicil Res Gene Streptococcus sp PCR Group A Strep (PCR) Strep agalactiae (PCR) Strep pneumoniae (PCR) P. aeruginosa (PCR) Brianna/B-Vanco Res Genes KPC-Carbap Res Gene PCR Assessment & Plan Plan: Assessment/Plan Narrative: 1. Diabetic ketoacidosis - AG now closed, BG stable in 150s - Will transition to PO diet and subQ Insulin as per home regimen 2. L renal pyelonephritis with bacteremia - WBC 11.8->10.4, patient is afebrile and hemodynamically stable - lactic acid 1.6, but procalcitonin is 2.7 - UA positive for infection - CT abd/pelvis concerning for L pyelonephritis - Blood cx positive for E coli, pending Urine cultures - Continue Ceftriaxone IV 1g Q24H 3. Acute kidney injury - resolved, likely due to dehydration - BUN 22, creatinine 1.0. - Will stop IVF once pateint tolerates PO 4. Hypertension - BP continues to be stable - Will resume Lisinopril now that patient is out of BESSY 5. Hyperlipidemia - continue atorvastatin 40 mg q.h.s. 6. Osteoarthritis - patient takes ibuprofen 3 times a day - will hold ibuprofen in light of acute kidney injury, and instead give Tylenol 650 mg q.6 hours as needed for pain, as well as morphine IV as needed for abdominal pain 7. Insulin-dependent diabetes mellitus - patient takes Humulin N 20 units daily and Humulin R 10 units t.i.d. at home - hbA1c 11.7 - Transition to home regiment insulin at this time - Diabetes education Dispo: Patient is being transitioned to home regimen insulin. Also being treated for pyelonephritis with bacteremia Quality VTE Deep Vein Thrombosis/Pulmonary Embolism Present on Admission: No
[2018-08-18 07:59] VITALS: BP 126/64; PULSE 94; RESP 16; TEMP 37.1; O2SAT 95
[2018-08-18] MEDS: LISINOPRIL 20 MG TABLET PO (08:37)
[2018-08-18] MEDS: INSULIN GLARGINE 100 UNIT/ML 3ML PEN 20 UNIT SUBCUT (08:38)
[2018-08-18] MEDS: HEPARIN 5,000 UNIT/ML VIAL 5000 UNIT SUBCUT ×2 (08:39→20:56)
[2018-08-18] MEDS: INSULIN ASPART 100 UNIT/ML INSULN PEN SUBCUT ×4 (09:49→21:02)
--- NOTE | 2018-08-18 10:56 | PC.NURSE ---
Physical assessment completed with use of structured cabling technician phone services. Pt is AO x2-3. She is unsure of time/date/month but states the year is 2017 and that she lives with her daughter in the state of [place] although unsure of city. She denies shortness of breath. She denies pain. She denies dysuria. She states that she is not normally incontinent and that she does not want to bother staff by calling. Educated her to use of call light and reassured her that staff is here to help and we will promptly assist her with her needs. Educated her to fall risk, verbalizes understanding. She agrees to use the call light and provides return demonstration.
[2018-08-18 11:55] VITALS: BP 130/56; PULSE 83; RESP 16; TEMP 36.8; O2SAT 95
[2018-08-18] MEDS: CEFTRIAXONE 1 GM/50 ML FROZ.PIGGY IV (15:14)
[2018-08-18] MEDS: INFLUENZA VACCINE 0.5 ML SYRINGE IM (15:15)
--- NOTE | 2018-08-18 15:37 | CM.DPNOTE ---
DCP Chart Review Patient is a 73 year old female who was admitted to ICU on 08/17/18 for Stomach Pain and loss Appetite. Pt has [facility] and [facility] for insurance and her PCP is Dr. Wilde. EMR was reviewed. Per MD, pt with diabetic ketoacidosis and CT showed possible pyelonephritis and UTI seems to be improving. Per RN, pt is primarily Khmer speaking and lives with her Dtr who has been bedside and helping to interpret. Pt has been somewhat alert and oriented today. SW unable to completed bedside assessment today due to triage needs and will attempt assessment tomorrow as pt is not stable for d/c yet today and likely need another couple days. Plan: SW to follow for bedside assessment with pt and Dtr tomorrow towards determining any possible d/c planning needs. JAVAD Mckinnon
[2018-08-18 15:48] LABS: Blood Urea Nitrogen 20 mg/dL (7-17); Calcium 7.9 mg/dL (8.4-10.2); Carbon Dioxide 19 mmol/L (22-32); Chloride 110 mmol/L (98-107); Estimated Glomerular Filt Rate 54.5 mL/min (>60); Glucose 142 mg/dL (80-110); HEMOLYSIS < 15 (0-50); Potassium 4.1 mmol/L (3.4-5.1); Sodium 139 mmol/L (137-145)
[2018-08-18 15:51] VITALS: BP 134/58; PULSE 81; RESP 20; TEMP 36.8; O2SAT 96
[2018-08-18 21:00] VITALS: BP 134/79; PULSE 84; RESP 20; TEMP 35.6; O2SAT 96
[2018-08-18 23:49] VITALS: BP 141/87; PULSE 90; RESP 20; TEMP 36.8; O2SAT 97
[2018-08-19] VITALS (7 sets, daily range): BP systolic 135–152; BP diastolic 38–77; PULSE 78–89; RESP 16–20; TEMP 36.7–37.2; O2SAT 95–98
[2018-08-19 05:25] LABS: Add Manual Diff / Slide Review NO; Basophils Percent Auto 0.3 % (0-2); Eosinophils Percent Auto 0.8 % (2-4); Hematocrit 25.5 % (36-46); Hemoglobin 8.5 g/dL (12.0-16.0); Lymphocytes Percent Auto 14.5 % (25-40); Mean Corpuscular HGB Conc 33.3 % (30-36); Mean Corpuscular Hemoglobin 27.4 PG (26-34); Mean Corpuscular Volume 82.2 fL (80-100); Monocytes Percent Auto 9.9 % (3-14); Neutrophils Absolute Auto 5500 /uL (3000-5900); Neutrophils Percent Auto 74.5 % (50-75); Platelet Count 266 X10^3/uL (150-400); Red Cell Distribution Width 14.1 % (11.6-14.8); White Blood Cell Count 7.4 X10^3/uL (4.5-11.0)
[2018-08-19 05:33] LABS: BUN Creatinine Ratio 18.8 (6-22); Blood Urea Nitrogen 15 mg/dL (7-17); Carbon Dioxide 18 mmol/L (22-32); Chloride 107 mmol/L (98-107); Estimated Glomerular Filt Rate > 60.0 mL/min (>60); Glucose 261 mg/dL (80-110); HEMOLYSIS < 15 (0-50); Potassium 3.9 mmol/L (3.4-5.1); Sodium 137 mmol/L (137-145)
--- NOTE | 2018-08-19 07:24 | PM.PN.1 ---
Subjective Date Patient Seen: 08/19/18 Time Patient Seen: 07:25 Interval history: Follow-up on DKA and pyelonephritis with bacteremia Patient seen at bedside. No acute overnight events. No fevers or chills, no leukocytosis. Patient is improving. Her appetite is doing well, she is able to eat. Yesterday patient's blood cultures came back positive for E coli. No left lower quadrant pain anymore. Patient was transition to home subq regimen of insulin, and continues to do well on p.o. diet. Exam Vital Signs (past 8 hours): - 08/18/18 23:49 08/19/18 05:07 Temperature 98.3 F 98.2 F Pulse Rate 90 81 Respiratory Rate 20 20 Blood Pressure 141/87 H 143/38 H Pulse Oximetry 97 95 Oxygen Delivery Method Room Air Oxygen Flow Rate 0 Narrative Exam Narrative: No acute distress, AAO x3 HEENT: PERRLA bilaterally, dry mucous membranes Neck: Supple, no LAD or JVD CV: Regular rate rhythm, no murmurs or gallops GI: No tenderness to palpation. Positive bowel sounds in all quadrants. No organomegaly Musculoskeletal: Normal range of motion Extremities: No edema noted Skin: No bruising or lesions noted Neuro: No focal deficits Psych: Mood is appropriate, no agitation Objective Labs Result Diagrams: 08/19/18 04:55 08/19/18 04:55 Labs: Laboratory Results - last 24 hr 08/18/18 08/18/18 08/19/18 05:00 06:15 04:55 WBC 10.4 7.4 RBC 3.21 L 3.10 L Hgb 8.7 L 8.5 L Hct 26.2 L 25.5 L MCV 81.7 82.2 MCH 27.2 27.4 MCHC 33.3 33.3 RDW 14.1 14.1 Plt Count 249 266 Neut % (Auto) 74.5 74.5 Lymph % (Auto) 13.9 L 14.5 L [place] % (Auto) 11.2 9.9 Eos % (Auto) 0.3 L 0.8 L Baso % (Auto) 0.1 0.3 Neut # (Auto) 7800 H 5500 Sodium 139 Potassium 4.1 Chloride 110 H Carbon Dioxide 19 L BUN 20 H Creatinine 1.00 Estimated GFR 54.5 L BUN/Creatinine Ratio 20.0 Glucose 142 H Calcium 7.9 L 08/19/18 04:55 WBC RBC Hgb Hct MCV MCH MCHC RDW Plt Count Neut % (Auto) Lymph % (Auto) [place] % (Auto) Eos % (Auto) Baso % (Auto) Neut # (Auto) Sodium 137 Potassium 3.9 Chloride 107 Carbon Dioxide 18 L BUN 15 Creatinine 0.80 Estimated GFR > 60.0 BUN/Creatinine Ratio 18.8 Glucose 261 H D Calcium 8.0 L Assessment & Plan Plan: Assessment/Plan Narrative: 1. Diabetic ketoacidosis - Resolved, patient successfully transitioned to SubQ insulin 2. L renal pyelonephritis with bacteremia - WBC 11.8->10.4->7.4, patient is afebrile and hemodynamically stable - lactic acid 1.6, but procalcitonin is 2.7 - UA positive for infection - CT abd/pelvis concerning for L pyelonephritis - Blood cx positive for E coli, Urine cultures showing GNR - Continue Ceftriaxone IV 1g Q24H - Pending repeat cultures before considering transitioning to PO antibiotics 3. Hypertension - BP continues to be stable - Will resume Lisinopril now that patient is out of BESSY 4. Hyperlipidemia - continue atorvastatin 40 mg q.h.s. 5. Osteoarthritis - patient takes ibuprofen 3 times a day - will hold ibuprofen in light of acute kidney injury, and instead give Tylenol 650 mg q.6 hours as needed for pain, as well as morphine IV as needed for abdominal pain 6. Insulin-dependent diabetes mellitus - patient takes Humulin N 20 units daily and Humulin R 10 units t.i.d. at home - hbA1c 11.7 - Patient started on Lantus 20U QHs and sliding scale...Required 21U correctional over 24hr period and BG continues to be elevated - Will add on Lispro 7U TID PC and continue Lantus 20U QHS, as well as sliding scale - Monitor BG Dispo: Patient is being treated for pyelonephritis and bacteremia. Pending repeat blood cultures Quality VTE Deep Vein Thrombosis/Pulmonary Embolism Present on Admission: No
[2018-08-19] MEDS: INSULIN ASPART 100 UNIT/ML INSULN PEN 7 UNIT SUBCUT ×3 (07:56→16:50)
[2018-08-19] MEDS: INSULIN ASPART 100 UNIT/ML INSULN PEN SUBCUT ×4 (07:56→20:48)
[2018-08-19] MEDS: INSULIN GLARGINE 100 UNIT/ML 3ML PEN 20 UNIT SUBCUT (07:56)
[2018-08-19] MEDS: HEPARIN 5,000 UNIT/ML VIAL 5000 UNIT SUBCUT ×2 (07:57→20:46)
[2018-08-19] MEDS: LISINOPRIL 20 MG TABLET PO (07:57)
[2018-08-19] MEDS: SODIUM CHLORIDE 0.9% FLUSH 10 ML IV ×2 (08:01→20:50)
[2018-08-19] MEDS: CEFTRIAXONE 1 GM/50 ML FROZ.PIGGY IV (14:41)
[2018-08-20] VITALS (7 sets, daily range): BP systolic 116–152; BP diastolic 48–74; PULSE 74–88; RESP 16–20; TEMP 36.3–37.1; O2SAT 94–99
[2018-08-20 05:40] LABS: Add Manual Diff / Slide Review NO; Basophils Percent Auto 0.2 % (0-2); Eosinophils Percent Auto 1.5 % (2-4); Hematocrit 25.9 % (36-46); Hemoglobin 8.5 g/dL (12.0-16.0); Lymphocytes Percent Auto 21.4 % (25-40); Mean Corpuscular HGB Conc 32.7 % (30-36); Mean Corpuscular Hemoglobin 26.7 PG (26-34); Mean Corpuscular Volume 81.6 fL (80-100); Monocytes Percent Auto 10.5 % (3-14); Neutrophils Absolute Auto 3900 /uL (3000-5900); Neutrophils Percent Auto 66.4 % (50-75); Platelet Count 296 X10^3/uL (150-400); Red Blood Cell Count 3.17 X10^6/uL (4.0-5.2); White Blood Cell Count 5.9 X10^3/uL (4.5-11.0)
[2018-08-20 05:52] LABS: BUN Creatinine Ratio 17.8 (6-22); Blood Urea Nitrogen 16 mg/dL (7-17); Calcium 8.2 mg/dL (8.4-10.2); Carbon Dioxide 19 mmol/L (22-32); Chloride 107 mmol/L (98-107); Estimated Glomerular Filt Rate > 60.0 mL/min (>60); Glucose 219 mg/dL (80-110); HEMOLYSIS < 15 (0-50); Potassium 3.9 mmol/L (3.4-5.1); Sodium 136 mmol/L (137-145)
--- NOTE | 2018-08-20 07:37 | PM.PN.1 ---
Subjective Date Patient Seen: 08/20/18 Time Patient Seen: 07:37 Interval history: FOLLOW-UP ON HYPERGLYCEMIA AND PYELONEPHRITIS WITH BACTEREMIA Patient seen at bedside. No acute overnight events. She is doing well, abdominal pain has resolved. The patient continues to have high blood glucose despite Lantus/lispro/correctional administration. Will readjust the doses. Blood culture repeat pending. Exam Vital Signs (past 8 hours): - 08/19/18 23:45 08/20/18 03:40 Temperature 98.2 F 97.4 F L Pulse Rate 85 87 Respiratory Rate 20 20 Blood Pressure 146/77 H 151/65 H Pulse Oximetry 98 98 Oxygen Delivery Method Room Air Oxygen Flow Rate 0 Narrative Exam Narrative: General: No acute distress, AAO x3 HEENT: PERRLA bilaterally, dry mucous membranes Neck: Supple, no LAD or JVD CV: Regular rate rhythm, no murmurs or gallops GI: No tenderness to palpation. Positive bowel sounds in all quadrants. No organomegaly Musculoskeletal: Normal range of motion Extremities: No edema noted Skin: No bruising or lesions noted Neuro: No focal deficits Psych: Mood is appropriate, no agitation Objective Labs Result Diagrams: 08/20/18 05:06 08/20/18 05:06 Labs: Laboratory Results - last 24 hr 08/20/18 08/20/18 05:06 05:06 WBC 5.9 RBC 3.17 L Hgb 8.5 L Hct 25.9 L MCV 81.6 MCH 26.7 MCHC 32.7 RDW 14.0 Plt Count 296 Neut % (Auto) 66.4 Lymph % (Auto) 21.4 L [place] % (Auto) 10.5 Eos % (Auto) 1.5 L Baso % (Auto) 0.2 Neut # (Auto) 3900 Sodium 136 L Potassium 3.9 Chloride 107 Carbon Dioxide 19 L BUN 16 Creatinine 0.90 Estimated GFR > 60.0 BUN/Creatinine Ratio 17.8 Glucose 219 H Calcium 8.2 L Assessment & Plan Plan: Assessment/Plan Narrative: 1. Diabetic ketoacidosis - Resolved, patient successfully transitioned to SubQ insulin 08/19/18 2. L renal pyelonephritis with bacteremia - WBC 11.8->->5.9, patient is afebrile and hemodynamically stable - lactic acid 1.6, but procalcitonin was 2.7 - UA positive for infection - CT abd/pelvis concerning for L pyelonephritis - Blood cx positive for E coli, Urine cultures showing E coli - Continue Ceftriaxone IV 1g Q24H - Pending repeat cultures before transitioning to PO antibiotics based on sensitivities 3. Hypertension - BP continues to be stable - continue Lisinopril 20 mg p.o. daily 4. Hyperlipidemia - continue atorvastatin 40 mg q.h.s. 5. Osteoarthritis - patient takes ibuprofen 3 times a day - continue Tylenol 650 mg q.6 hours as needed for pain, as well as morphine IV as needed for abdominal pain 6. Insulin-dependent diabetes mellitus - blood glucose continues to be elevated - patient takes Humulin N 20 units daily and Humulin R 10 units t.i.d. at home - hbA1c 11.7 - patient received 25 units correctional insulin over 24 hr period. Will increase Lantus to 30 units q.h.s. and lispro to 12 units t.i.d. p.c.. Continue medium dose sliding scale - Monitor BG Dispo: Patient is being treated for pyelonephritis and bacteremia. Pending repeat blood cultures before transitioning to p.o. antibiotics Quality VTE Deep Vein Thrombosis/Pulmonary Embolism Present on Admission: No
--- NOTE | 2018-08-20 08:17 | CM.IDA ---
DCP Assessment Note: Met w/pt and her dtr, 11 yo grandson also at bedside on 08.19.18, explained SW role. Dtr assisting in translation. Dtr explains in detail that things have been going fairly well at home w./pt although dtr always concerned that when she is not present, pt does not check blood sugar, does not take insulin and often will not follow a diabetic friendly diet. Dtr hopeful that once DC home, pt will follow the doctor's recommendation for diabetes management so that pt will not need to return to the hospital. Pt lives w/her dtr, son in law, and two teenage grandsons. Pt does not want to age in a fdc facility and dtr feels committed to keeping her mom home. At this time, dtr works maritime pilot, goes to school, and takes care of pt when home. She manages the chores, cooking, meds, and recently learned she will need to assist pt more w/her hygiene needs (pt can not wipe well and has become incontinent of urine). Dtr Leah recently was instated as pt's [facility] cg, [facility] CM is Moise (48 hrs). Dtr feels even though she and her work maritime pilot, pt manages well at home on her own at htis time. Dtr denies needs from this OPERATIONS EXECUTIVE and expects to pick her mom up on Tuesday if medically cleared. po abx are expected per Dr Bocanegra. Following closely in case there are DC needs upon pt's DC, expected today. JAVAD Busby Discharge Planning/Care Management CM Discharge Assessment Start: 08/20/18 08:03 Freq: Status: Active Protocol: Document 08/20/18 08:03 [facility] (Rec: 08/20/18 08:17 [facility] [id number]) Discharge Planning Assessment Assigned Decorative Cutting Machine Tender JAVAD Banuelos DPOA/Assigned Designee Name Leah Demarco dtr Contact Information [phone] Advance Directives? Yes: DPOA, HEALTH CARE DIRECTIVE History Provided By Family Member Prior Living Arrangements House Household Members family Type of transporation used prior to Relies on Others admit Independent with ADL's No Is patient alert and oriented? Yes Needs Assistance With Bathing Grooming Meal Prep Toileting Managing Medications Home Chores / Shopping Comment Pt can self transfer and ambulates mostly indp. Family has discovered recently that pt has become incontinent and requires addtl. assist when bathing, toileting/hygiene. Pt also requires ongoing support/encouragement to continue taking prescribed medication and follow a Diabetic diet, per dtr. Name of Agency [facility] Faxed Yes Hours / Month 48 Comment Dtr Leah is pt's Individual Provider (IP)/ cg. [facility]WA[facility] CM is Moise. Dtr explains the [facility] hours were recently started. TAWANA CM assisting in getting pt briefs for recent incontinence. H+P faxed to [facility]. Barriers to Discharge No Discharge Plan Home Transportation Arrangement Family Additional Comment Need to review option of home health w/pt's dtr. Whiteboard Updated in Patient Room with Yes name and ext. # of Decorative Cutting Machine Tender Review Status In Process Please Provide Date Initial DC 08/19/18 Assessment Was Performed
[2018-08-20] MEDS: LISINOPRIL 20 MG TABLET PO (08:42)
[2018-08-20] MEDS: INSULIN ASPART 100 UNIT/ML INSULN PEN 12 UNIT SUBCUT ×3 (08:43→16:51)
[2018-08-20] MEDS: INSULIN ASPART 100 UNIT/ML INSULN PEN SUBCUT ×3 (08:43→16:51)
[2018-08-20] MEDS: HEPARIN 5,000 UNIT/ML VIAL 5000 UNIT SUBCUT ×2 (08:44→21:03)
[2018-08-20] MEDS: SODIUM CHLORIDE 0.9% FLUSH 10 ML IV ×2 (08:45→21:03)
--- NOTE | 2018-08-20 14:04 | PT.IIE ---
Current Diagnoses Other specified diabetes mellitus with ketoacidosis without coma (08/17/18) Medical History (Last Updated 08/17/18 @ 14:38 by Radha Bocanegra MD) DKA (diabetic ketoacidoses) (Acute) HLD (hyperlipidemia) (Chronic) HTN (hypertension) (Chronic) Insulin dependent diabetes mellitus (Chronic) Osteoarthritis (Chronic) Osteoporosis (Chronic) Diabetes (Acute) Physical Therapy Inpatient Evaluation/Re-Eval M1 PT/OT-IP Prior Functional Status Start: 08/20/18 14:35 Freq: NEEDED Status: Active Protocol: Document 08/20/18 14:04 [facility] (Rec: 08/20/18 14:48 [facility] [id number]) Medical Review Prior Functional Status Medical History Reviewed Yes Communication Egyptian speaking but able to communicate some German Mobility and Gait per daughter, 4WW for ambulation in home and sometimes her cane; she is limited by OA and pain in many joints, therfore mostly household ambulation. Activities of Daily Living and IADL's daughter assists with bathing and some toileting, although pt occasionally does get up at night alone. Social History Household Members family Living Arrangements House Number of Floors (Floors) Two Floors Number of Stairs To Enter/Railing? no steps to enter, pt lives on main floor (does not need to manage stairs) Home Equipment Four Wheel Walker Straight Cane Additional Social History Comment daughter is main caregiver, but she does work and goes to school. Daughter denies any issues with return back home. M2 PT-IP Current Condition Start: 08/20/18 14:35 Freq: NEEDED Status: Active Protocol: Document 08/20/18 14:04 [facility] (Rec: 08/20/18 14:48 [facility] [id number]) Physical Therapy Current Condition Current Condition Evaluation Date 08/20/18 Treatment Diagnosis LL Quadrant pain, DKA, impaired gait M3 PT-IP Subjective Start: 08/20/18 14:35 Freq: NEEDED Status: Active Protocol: Document 08/20/18 14:04 [facility] (Rec: 08/20/18 14:48 [facility] [id number]) Subjective Physical Therapy Visit Type Type Initial Evaluation Visit Start Time 13:50 Visit Stop Time 14:05 Total Visit Minutes 14 Number of VISITING PROFESSOR Visits 0 Physical Therapy Visit Comments Patient Comments Pt agreeable to get up. Patient Goals pt's daughter wants her to be able to go home. M4 PT-IP Mobility and Gait Start: 08/20/18 14:35 Freq: NEEDED Status: Active Protocol: Document 08/20/18 14:04 [facility] (Rec: 08/20/18 14:48 [facility] [id number]) PT-Transfer Assessment Sit to and From Stand Sit to and from Stand Standby Assistance Equipment Transfer Assistive Device Gait Belt Straight Cane Transfers Transfer Destination Chair Transfer Technique Stand Step Pivot Transfer Ability Level of Assist Contact Guard Assistance Gait Assessment Gait Gait Assistance Required: Contact Guard Assist Distance (Feet) 100 Assistive Devices Assistive Device Gait Belt Straight Cane Gait Deviations General Gait Pattern Antalgic Decreased Feet Clearance Factors Limiting Gait Function Factors Limiting Gait Function Decreased Activity Tolerance Decreased Strength Pain Poor Balance Comments Gait Comments LLE stiffness with ambulation- steppage-like gait with limited ankle DF and knee flexion (increased hip flexion ); increased lateral sway with turns, no LOB. PT-Balance Assessment Sitting Balance and Reactions Static Sitting Balance Ability Good Dynamic Sitting Balance Ability Good Standing Balance and Reactions Static Standing Balance Ability Fair Dynamic Standing Balance Ability Fair Device Used SPC M5 PT-IP Objective Assessments Start: 08/20/18 14:35 Freq: NEEDED Status: Active Protocol: Document 08/20/18 14:04 [facility] (Rec: 08/20/18 14:48 [facility] [id number]) Orientation Orientation/Cognition Level of Alertness Alert Gross Range of Motion Lower Extremity ROM Assessment Bilaterally Impaired Strength Lower Extremity Strength Assessment Bilaterally Impaired Hip flexion 4/5 R, 3+/5 L Knee flexion 3+/5 B, extension 4/5 R and 3+/5 L Ankle DF 5/5 R, 3+/5 L M7 PT-IP Assessment and Plan Start: 08/20/18 14:35 Freq: NEEDED Status: Active Protocol: Document 08/20/18 14:04 [facility] (Rec: 08/20/18 14:48 [facility] [id number]) PT Summary Assessment and Plan Potential Rehabilitation Potential Good Status of Condition at Evaluation Evolving Summary Impairments Pain ROM Strength Balance Gait Activity Tolerance Assessment Summary Pt with increased lateral sway with ambulation using her SPC , likely to be more stable and safe with a walker (hopeful to attempt 4WW trial next session). Pt is compliant, able to understand German without translation mostly. Pt 's gait is antalgic, most difficulty with turning, especially to the L. Overall, expect pt to be able to d/c home when medically stable with family assistance. Goals Bed Mobility Goal Standby Assistance Transfer Goal Standby Assistance Gait Goal Standby Assistance Four Wheel Walker Gait Distance 150 Days to Meet Goals 3 Frequency of Treatment Frequency Of Treatment Once a Day Treatment Plan Physical Therapy Treatment Plan Bed Mobility Training Transfer Training Gait Training Therapeutic Exercise Balance Retraining Other Recommendations and Next Treatment 4WW trial with gait Focus Recommendations To Nursing Amount of Assist Needed 1 Person Assist Discharge Recommendations PT Discharge Recommendations Home with 18/04 Assist Other Discharge Recommendations use her own 4WW
[2018-08-20] MEDS: CEFTRIAXONE 1 GM/50 ML FROZ.PIGGY IV (14:36)
--- NOTE | 2018-08-20 20:45 | PC.NURSE ---
2044 - Patient transferred to acute care unit. Report given to receiving JULIETH Ely.
[2018-08-20] MEDS: INSULIN GLARGINE 100 UNIT/ML 3ML PEN 30 UNIT SUBCUT (21:04)
--- NOTE | 2018-08-20 21:14 | PC.NURSE ---
pt arrived to floor transfer from icu. oriented to room and hospital procedures. pt understands Indian. Pt given water and call light. will continue to monitor.
[2018-08-21] VITALS (8 sets, daily range): BP systolic 117–150; BP diastolic 49–87; PULSE 73–94; RESP 16–20; TEMP 36.6–37.1; O2SAT 94–99
--- NOTE | 2018-08-21 01:36 | PC.NURSE ---
Addendum entered by Cheyanne Tyler R.N. 08/21/18 05:58: Slept at intervals. Denies any pain this morning. Original Note: Patient is alert and oriented; speaks minimal Upper Sorbian but is able to understand and respond to yes/no questions. Breath sounds CTA with RA sat of 94%. HRR. Denies nausea. BT present and abdomen is soft. Denies dysuria, frequency or urgency with urination. Turns self in bed and is assisted to bathroom with 1 assist and using the cane; is steady on feet. Denies pain. Fall risk score is high and bed alarm is activated.
[2018-08-21 06:03] LABS: Add Manual Diff / Slide Review NO; Basophils Percent Auto 0.3 % (0-2); Eosinophils Percent Auto 1.3 % (2-4); Hematocrit 26.5 % (36-46); Hemoglobin 8.8 g/dL (12.0-16.0); Lymphocytes Percent Auto 20.9 % (25-40); Mean Corpuscular HGB Conc 33.1 % (30-36); Mean Corpuscular Hemoglobin 26.9 PG (26-34); Mean Corpuscular Volume 81.3 fL (80-100); Monocytes Percent Auto 9.6 % (3-14); Neutrophils Absolute Auto 4300 /uL (3000-5900); Neutrophils Percent Auto 67.9 % (50-75); Platelet Count 313 X10^3/uL (150-400); Red Blood Cell Count 3.26 X10^6/uL (4.0-5.2); Red Cell Distribution Width 14.2 % (11.6-14.8); White Blood Cell Count 6.3 X10^3/uL (4.5-11.0)
[2018-08-21 06:10] LABS: BUN Creatinine Ratio 21.1 (6-22); Blood Urea Nitrogen 19 mg/dL (7-17); Calcium 8.6 mg/dL (8.4-10.2); Carbon Dioxide 21 mmol/L (22-32); Chloride 107 mmol/L (98-107); Estimated Glomerular Filt Rate > 60.0 mL/min (>60); Glucose 167 mg/dL (80-110); HEMOLYSIS < 15 (0-50); Potassium 3.9 mmol/L (3.4-5.1); Sodium 139 mmol/L (137-145)
[2018-08-21] MEDS: LISINOPRIL 20 MG TABLET PO (07:57)
[2018-08-21] MEDS: HEPARIN 5,000 UNIT/ML VIAL 5000 UNIT SUBCUT ×2 (07:57→21:08)
[2018-08-21] MEDS: INSULIN ASPART 100 UNIT/ML INSULN PEN 12 UNIT SUBCUT ×3 (07:58→16:33)
[2018-08-21] MEDS: INSULIN ASPART 100 UNIT/ML INSULN PEN SUBCUT ×4 (07:58→21:08)
[2018-08-21] MEDS: SODIUM CHLORIDE 0.9% FLUSH 10 ML IV ×2 (08:00→21:22)
--- NOTE | 2018-08-21 10:40 | OT.IP.EVAL ---
Current Diagnoses Other specified diabetes mellitus with ketoacidosis without coma (08/17/18) Past Medical History (Last Updated 08/17/18 @ 14:38 by Radha Bocanegra MD) DKA (diabetic ketoacidoses) (Acute) HLD (hyperlipidemia) (Chronic) HTN (hypertension) (Chronic) Insulin dependent diabetes mellitus (Chronic) Osteoarthritis (Chronic) Osteoporosis (Chronic) Diabetes (Acute) Occupational Therapy Inpatient Evaluation/Re-Eval M1 PT/OT-IP Prior Functional Status Start: 08/20/18 14:35 Freq: NEEDED Status: Active Protocol: Document 08/21/18 10:40 [facility] (Rec: 08/21/18 17:02 [facility] [id number]) Medical Review Prior Functional Status Medical History Reviewed Yes Diet/Fluid Consistency Regular Communication Brazilian speaking but able to communicate w/some Kinyarwanda Mobility and Gait Per daughter, 4WW for ambulation in home and sometimes her cane; she is limited by OA and pain in many joints, therefore mostly household ambulation. Activities of Daily Living and IADL's Daughter assists with bathing and some toileting, although also use bathroom independently while daughter at work. Pt reports difficulty reaching her feet for lower body dressing due to B knee pain. Prior Functional Level (Other details) Daughter does all IADLS and driving. Pt occasionally prepares light meal. Social History Household Members children Living Arrangements House Number of Floors (Floors) Two Floors Number of Stairs To Enter/Railing? no steps to enter, pt lives on main floor (does not need to manage stairs) Home Environment Walk in Shower Home Equipment Four Wheel Walker Straight Cane Shower Seat with Backrest Hand Held Shower Grab Bars In Shower Employment Status Retired Additional Social History Comment Pt lives with daughter. Daughter is main caregiver, but she does work and goes to school. Daughter denies any issues with return back home. M2 OT-IP Current Condition Start: 08/21/18 16:49 Freq: Status: Active Protocol: Document 08/21/18 10:40 [facility] (Rec: 08/21/18 17:02 PJM [id number]) Occupational Therapy Current Condition Current Condition Evaluation Date 08/21/18 Treatment Diagnosis decreased self care Diagnosis Onset Date 08/17/18 Post Operative Precautions Other Precautions fall risk M3 OT- IP Subjective and Pain Start: 08/21/18 16:49 Freq: Status: Active Protocol: Document 08/21/18 10:40 [facility] (Rec: 08/21/18 17:02 PJM [id number]) OT- Subjective Occupational Therapy Visit Type Type Initial Evaluation Visit Start Time 10:07 Visit Stop Time 10:40 Total Visit Minutes 33 Notes Pt awake and alert in recliner when therapist arrived. Occupational Therapy Visit Comments Patient/Caregiver Goals to go home OT Pain Assessment Pain When Pain Assessed After Treatment Pain Present Pain Present Denied Pain M4 OT- IP ADL's Start: 08/21/18 16:49 Freq: Status: Active Protocol: Document 08/21/18 10:40 [facility] (Rec: 08/21/18 17:02 PJM [id number]) OT QKG-Head-Neshdzu General Evaluation Self-Feeding Ability Independent OT ADL-Grooming General Evaluation Grooming Ability Independent Areas Needing Assistance Combing/Brushing Hair Face Washing Comments OT Grooming Comments standing at sink with FWW OT ADL-Oral Care General Eval Oral Care Ability Independent Areas of Assistance Brushing Teeth Devices Oral Care Devices Toothbrush Comments Oral Care Comments standing at sink with FWW OT ADL-Dressing General Eval Upper Body Dressing Ability Independent Lower Body Dressing Ability Standby Assistance Areas Needing Assistance Underpants/Brief Socks Shoes Assistive Devices Dressing Assistive Devices Long Handled Shoe Horn Hydraulic Jack Mechanic Sock Aid Comments OT Dressing Comments Provided education re: use of shampoo person, sock aid and long shoe horn to increase ease and independence with lower body dressing. Pt having difficulty reaching feet due to B knee pain and body type. Pt able to use new equipt with SBA after education. OT ADL-Toileting General Evaluation Toileting Ability Independent OT ADL-Bathing Comments OT Bathing Comments did not occur, pt has all necessary bathroom safety equipt at home and long bath sponge provided M5 OT- IP IADL's Start: 08/21/18 16:49 Freq: Status: Active Protocol: Document 08/21/18 10:40 [facility] (Rec: 08/21/18 17:02 PJM [email or web address]) OT-Instrumental Activities of Daily Living Deficits IADL Deficits Identified Deficits Home Safety Awareness Awareness of Need for Assistance at Home Decreased Awareness Ability to Problem Solve Emergency Able to Problem Solve Situations Medication Management Medication Management Comments Pt will need supervision with diabetes management as BG 552 with diabetic keto acidosis on admit. Money Management Money Management Caregiver Provides Supervision Meal Preparation Meal Preparation Caregiver Provides Assist Clinical Biochemist Clinical Biochemist Caregiver Provides Assist Driving Driving Caregiver Provides Assist Driving Comments pt no longer drives M6 OT- IP Functional Cognition Start: 08/21/18 16:49 Freq: Status: Active Protocol: Document 08/21/18 10:40 [facility] (Rec: 08/21/18 17:02 PJM NR) Cognitive Factors Limiting Selfcare Function Cognitive Ability Level of Alertness Alert Patient Orientation Name Place Situation Attention Span Ability Capable of Focused Attention Capable of Sustained Attention Ability to Follow Commands Able to Follow One Step Commands Cognitive Comments Cognitive Assessment Comments Brazilian is primary language but pt able to understand Kinyarwanda with demo as needed for this session. OT- Vision and Hearing OT- Hearing Assessment OT- Hearing Assessment WFL OT- Vision Assessment Visual Acuity WFL Glasses For Reading Vision Assessment Comments Pt denies any recent vision problems. M7 OT- IP Mobility and Balance Start: 08/21/18 16:49 Freq: Status: Active Protocol: Document 08/21/18 10:40 [facility] (Rec: 08/21/18 17:02 PJ NR) OT-Transfer Assessment Sit to and From Stand Sit to and from Stand Standby Assistance Transfers Transfer Ability Standby Assistance Technique Transfer Destination Chair Toilet Transfer Technique Stand Step Pivot Devices Transfer Assistive Devices Front Wheeled Walker OT- Gait Assessment Gait Gait Assistance Required: Standby Assistance Distance (Feet) 25 Assistive Devices Assistive Device Front Wheeled Walker OT- Balance Assessment Sitting Balance and Reactions Static Sitting Balance Ability Good Dynamic Sitting Balance Ability Good Standing Balance and Reactions Static Standing Balance Ability Good Dynamic Standing Balance Ability Good M8 OT- IP Objective Assessments Start: 08/21/18 16:49 Freq: Status: Active Protocol: Document 08/21/18 10:40 [facility] (Rec: 08/21/18 17:02 PJM NR) OT Gross Range of Motion Upper Extremity Range of Motion Assessment Within Functional Limits OT Strength Upper Extremity Strength Assessment Within Functional Limits OT- Coordination Assessment Comments Coordination Comments BUE WFL OT-Muscle Tone Assessment Muscle Tone WNL Yes OT Sensation Assessment Comments Summary Comments Pt denies sensory deficits in BUE's M9 OT- IP Assessment and Plan Start: 08/21/18 16:49 Freq: Status: Active Protocol: Document 08/21/18 10:40 [facility] (Rec: 08/21/18 17:02 PJM [id number]) OT Summary Assessment and Plan Potential Rehabilitation Potential Good Analytic Complexity at Evaluation Low Summary Assessment Summary Low complexity OT assessment completed with emphasis on self care skills. Provided education re: lower body dressing equipment to increase pt's independence in this area. Otherwise pt appears to be at baseline level of self care function with no further OT goals identified for this admission. Anticipate pt will return home with assistance from working daughter when medically stable and clears P.T. Frequency of Treatment Frequency Of Treatment Discharge Discharge Recommendations OT Discharge Recommendations Home with Assistance
[2018-08-21] MEDS: CEFTRIAXONE 1 GM/50 ML FROZ.PIGGY IV (16:31)
--- NOTE | 2018-08-21 16:36 | PT.IPTN ---
Current Diagnoses Other specified diabetes mellitus with ketoacidosis without coma (08/17/18) Physical Therapy Treatment Note M2 PT-IP Current Condition Start: 08/20/18 14:35 Freq: NEEDED Status: Active Protocol: Document 08/20/18 14:04 RCC (Rec: 08/20/18 14:48 RCC [id number]) Physical Therapy Current Condition Current Condition Evaluation Date 08/20/18 Treatment Diagnosis LL Quadrant pain, DKA, impaired gait M3 PT-IP Subjective Start: 08/20/18 14:35 Freq: NEEDED Status: Active Protocol: Document 08/21/18 15:53 LJ (Rec: 08/21/18 16:36 LJ [email or web address]) Subjective Physical Therapy Visit Type Type Treatment Note Visit Start Time 15:53 Visit Stop Time 16:21 Total Visit Minutes 28 Physical Therapy Visit Comments Patient Comments Pt requests to use the bathroom prior to ambulating in hallway. M4 PT-IP Mobility and Gait Start: 08/20/18 14:35 Freq: NEEDED Status: Active Protocol: Document 08/21/18 15:53 LJ (Rec: 08/21/18 16:36 LJ [email or web address]) PT-Transfer Assessment Sit to and From Stand Sit to and from Stand Standby Assistance Equipment Transfer Assistive Device Gait Belt Front Wheeled Walker Transfers Transfer Destination Bed Transfer Technique Forward/Backward Scoot Transfer Ability Level of Assist Standby Assistance Gait Assessment Gait Gait Assistance Required: Standby Assistance Distance (Feet) 260 Assistive Devices Assistive Device Gait Belt Front Wheeled Walker Gait Deviations General Gait Pattern Antalgic Decreased Feet Clearance Factors Limiting Gait Function Factors Limiting Gait Function Decreased Activity Tolerance Decreased Strength Pain Poor Balance Comments Gait Comments LLE stiffness with ambulation- steppage-like gait with limited ankle DF and knee flexion (increased hip flexion ); increased lateral sway with turns, no LOB. M5 PT-IP Objective Assessments Start: 08/20/18 14:35 Freq: NEEDED Status: Active Protocol: Document 08/20/18 14:04 RCC (Rec: 08/20/18 14:48 RCC [id number]) Orientation Orientation/Cognition Level of Alertness Alert Gross Range of Motion Lower Extremity ROM Assessment Bilaterally Impaired Strength Lower Extremity Strength Assessment Bilaterally Impaired Hip flexion 4/5 R, 3+/5 L Knee flexion 3+/5 B, extension 4/5 R and 3+/5 L Ankle DF 5/5 R, 3+/5 L M6 PT-IP Treatment Start: 08/20/18 14:35 Freq: NEEDED Status: Active Protocol: Document 08/21/18 15:53 MARIETTA (Rec: 08/21/18 16:36 [id number]) Physical Therapy Treatment Exercises Exercises Gluteal Sets Other Treatments Other Treatment Performed mini squats with FWW M7 PT-IP Assessment and Plan Start: 08/20/18 14:35 Freq: NEEDED Status: Active Protocol: Document 08/21/18 15:53 [place]ETTA (Rec: 08/21/18 16:36 [email or web address]) PT Summary Assessment and Plan Potential Rehabilitation Potential Good Status of Condition at Evaluation Evolving Summary Impairments Pain ROM Strength Balance Gait Activity Tolerance Assessment Summary Pt using FWW for safety and confidence d/t gait mechanics. Increased distance significantly. Pt request to return to room d/t pain in knees. Did not fatigue during ambulation. Has met goals for discharge. Goals Bed Mobility Goal Standby Assistance Transfer Goal Standby Assistance Gait Goal Standby Assistance Four Wheel Walker Gait Distance 150 Days to Meet Goals 3 Frequency of Treatment Frequency Of Treatment Once a Day Treatment Plan Physical Therapy Treatment Plan Bed Mobility Training Transfer Training Gait Training Therapeutic Exercise Balance Retraining Other Recommendations and Next Treatment 4WW trial with gait Focus Recommendations To Nursing Amount of Assist Needed Standby Assistance Discharge Recommendations PT Discharge Recommendations Home with 18/04 Assist Other Discharge Recommendations use her own 4WW
--- NOTE | 2018-08-21 17:21 | PM.PN.1 ---
Subjective Date Patient Seen: 08/21/18 Time Patient Seen: 10:45 Exam Vital Signs (past 8 hours): - 08/21/18 12:00 08/21/18 15:25 Temperature 98.6 F 98.1 F Pulse Rate 73 78 Respiratory Rate 16 18 Blood Pressure 117/49 L 143/64 H Pulse Oximetry 95 98 Oxygen Delivery Method Room Air Oxygen Flow Rate 0 Narrative Exam Narrative: NO ACUTE DISTRESS. PATIENT IS ALERT ORIENTED X3. OBESE VITAL SIGNS STABLE HEAD ATRAUMATIC NORMOCEPHALIC NECK : SUPPLE WITHOUT ADENOPATHY BECAUSE SHE WOULD HAS REVIEWED THE EYE: EOMI, PERRLA, NORMAL CONJUNCTIVA CHEST: REGULAR RATE.. NO RUBS. PMI IS NON DISPLACED. 1/6 SYSTOLIC MURMUR NOTED ON THE 2ND INTRACOSTAL IN THE RIGHT PULMONARY DECREASED OVER THE BASES. MILD BIBASILAR CRACKLES NOTED; NO INCREASED DULLNESS TO PERCUSSION EXTREMITIES: 1+ EDEMA. NON PITTING. NO CYANOSIS CLUBBING NOTED. NEURO: CRANIAL NERVES 2-12 GROSSLY INTACT. NO FOCAL NEUROLOGICAL DEFICIT NOTED. MSK: NORMAL RANGE OF MOTION FOR AGE. NO JOINT EFFUSION. SKIN: NORMAL FOR ETHNICITY; NO ECCHYMOSIS. NO LESION. GOOD TURGOR. : NORMAL EXTERNAL GENITALIA. PSYCH : APPROPRIATE MOOD AND AFFECT. ALERT AWAKE ORIENTED X3 Objective Labs Result Diagrams: 08/21/18 05:23 08/21/18 05:23 Labs: Laboratory Results - last 24 hr 08/21/18 08/21/18 05:23 05:23 WBC 6.3 RBC 3.26 L Hgb 8.8 L Hct 26.5 L MCV 81.3 MCH 26.9 MCHC 33.1 RDW 14.2 Plt Count 313 Neut % (Auto) 67.9 Lymph % (Auto) 20.9 L Tensas % (Auto) 9.6 Eos % (Auto) 1.3 L Baso % (Auto) 0.3 Neut # (Auto) 4300 Sodium 139 Potassium 3.9 Chloride 107 Carbon Dioxide 21 L BUN 19 H Creatinine 0.90 Estimated GFR > 60.0 BUN/Creatinine Ratio 21.1 Glucose 167 H Calcium 8.6 Assessment & Plan Plan: Assessment/Plan Narrative: IMPRESSION AND PLAN ECOLI UTI; SENSITIVITY REPORT NOTED. WE WILL SWITCH TO CIPRO IV IN PREPARATION FOR DISCHARGE WITH THE SAME MEDICATION IN ORAL FORM IF TOLERATED WELL. E COLI BACTEREMIA. SOURCE IS MOST LIKELY THE URINARY TRACT. TREATMENT ABOVE. OBESITY. LIFESTYLE CHANGES RECOMMENDED. OUTPATIENT MANAGEMENT ANEMIA CHRONIC DISEASE. MONITOR H&H FOR NOW. ADDITIONAL WORKUP OUTPATIENT DKA. RESOLVED. INSULIN DEPENDENT DIABETES. PATIENT ON LANTUS. CONTINUE SLIDING SCALE FOR NOW. BLOOD SUGARS FAIRLY CONTROLLED TODAY HYPERTENSION BY HISTORY. WILL MONITOR CLOSELY ON HOME AND NEEDED MEDICATION FOR NOW OSTEOARTHRITIS PER HISTORY. MONITOR FOR NOW. OUTPATIENT MANAGEMENT LIKELY DISCHARGE IN NEXT 24 HR IF BLOOD CULTURES REMAIN NEGATIVE. AND IF PATIENT TOLERATES NEW ANTIBIOTIC AGENT WELL Quality VTE Deep Vein Thrombosis/Pulmonary Embolism Present on Admission: No
[2018-08-21] MEDS: levoFLOXacin 750 MG/150 ML PIGGYBACK 100 MG IV (19:05)
[2018-08-21] MEDS: INSULIN GLARGINE 100 UNIT/ML 3ML PEN 30 UNIT SUBCUT (21:08)
[2018-08-22 04:08] VITALS: BP 124/58; PULSE 82; RESP 18; TEMP 37.3; O2SAT 97
[2018-08-22 07:30] VITALS: BP 131/68; PULSE 77; RESP 16; TEMP 37.1; O2SAT 94
[2018-08-22] MEDS: HEPARIN 5,000 UNIT/ML VIAL 5000 UNIT SUBCUT (08:34)
[2018-08-22] MEDS: LISINOPRIL 20 MG TABLET PO (08:35)
[2018-08-22] MEDS: INSULIN ASPART 100 UNIT/ML INSULN PEN SUBCUT (08:35)
[2018-08-22] MEDS: INSULIN ASPART 100 UNIT/ML INSULN PEN 12 UNIT SUBCUT (08:37)
[2018-08-22 08:40] VITALS: O2SAT 94
--- NOTE | 2018-08-22 09:53 | PC.NURSE ---
Addendum entered by Harmony Nieto R.N. 08/22/18 11:53: reviewed d/c instructions with pt and daughter at bedside, reviewed medications with last dose, abx instructions, f/u with primary, check bs before meals and at bedtime, diabetic diet, monitor for frequency, urgency or pain with urination. iv removed by student rn, answered all questions and concerns. this rn took pt out via w/c to daughters car. Original Note: Day Shift pt is A&O able to make needs known. denies any pain or discomfort. is sitting up in chair at bedside. call light within reach and chair alarm on
--- NOTE | 2018-08-22 10:24 | P.DS_ITS ---
History of Present Illness Date Patient Seen: 08/22/18 Time Patient Seen: 09:00 Chief complaint: pain in stomach,loss of appetite Discharge Providers Date of admission: 08/17/18 15:07 Primary care physician: Glory Wilde MD Consults: 08/20/18 10:34 Consult to Physical Therapy Evaluate & Treat Comment: Physician Instructions: Evaluate and Treat 08/20/18 11:22 Consult to Occupational Therapy Evaluate & Treat Comment: Physician Instructions: Evaluate and treat Consult to Physical Therapy Evaluate & Treat Comment: Physician Instructions: Evaluate and Treat Discharge provider: Wade Brandon DO Discharge Date: 08/22/18 Summary Discharge Diagnosis: E COLI BACTEREMIA E COLI UTI OBESITY ANEMIA OF CHRONIC DISEASES DKA RESOLVED JAYLAN DEPENDENT DIABETES OSTEOARTHRITIS Hospital Course: THIS IS A 73-YEAR-OLD FEMALE FOR PAST MEDICAL HISTORY SIGNIFICANT FOR HIS INSULIN-DEPENDENT DIABETES, HYPERTENSION, OSTEOPOROSIS, HYPERLIPIDEMIA. PATIENT PRESENTED TO THE HOSPITAL WITH SINUS SYMPTOM OF DKA. PATIENT WAS TREATED ADEQUATELY WITH VERTIGO AFTER TREATMENT. HER DKA RESOLVED. HOWEVER SUBSEQUENTLY HER URINE WAS TESTED AND SHOWED PYURIA. A UTI WAS DIAGNOSED. HER BLOOD CULTURE WAS ALSO SENT TO THE LAB. BOTH ALL THE CULTURES SUBSEQUENTLY GREW E COLI. SHE WAS PLACED ON ANTIBIOTICS. CULTURES WERE REPEATED AND REMAINED NEGATIVE FOOT THE LAST 4 DAYS. AT THIS POINT SHE APPEARS TO BE STABLE. HER ANTIBIOTICS WAS CHANGED TO ORAL LEVAQUIN GIVEN FOR 10 DAYS ADDITIONAL MANAGEMENT WILL BE DEFERRED TO OUTPATIENT PROVIDER THIS Status at Discharge Cognitive/behavioral status at discharge: STABLE AT DISCHARGE TO HOME Functional status at discharge: independent ambulation Overall status at discharge: patient is back to baseline Time Spent with Patient Greater than 30 minutes Exam Vital Signs (past 8 hours): - 08/22/18 04:08 08/22/18 07:30 Temperature 99.2 F 98.7 F Pulse Rate 82 77 Respiratory Rate 18 16 Blood Pressure 124/58 L 131/68 Pulse Oximetry 97 94 Oxygen Delivery Method Room Air Oxygen Flow Rate 0 Narrative Exam Narrative: NO ACUTE DISTRESS. PATIENT IS ALERT ORIENTED X3. VITAL SIGNS STABLE HEAD ATRAUMATIC NORMOCEPHALIC NECK : SUPPLE WITHOUT ADENOPATHY EYE: EOMI, PERRLA, NORMAL CONJUNCTIVA CHEST: REGULAR RATE.. NO RUBS. PMI IS NON DISPLACED. PULMONARY DECREASED BREATH SOUNDS OVER THE BASES. MILD BIBASILAR CRACKLES NOTED ; NO INCREASED DULLNESS TO PERCUSSION EXTREMITIES: 1+ EDEMA. NONPITTING. NO CYANOSIS CLUBBING NOTED. NEURO: CRANIAL NERVES 2-12 GROSSLY INTACT. NO FOCAL NEUROLOGICAL DEFICIT NOTED. MSK: NORMAL RANGE OF MOTION FOR AGE. NO JOINT EFFUSION. SKIN: NORMAL FOR ETHNICITY; NO ECCHYMOSIS. NO LESION. FAIR TURGOR. : NORMAL EXTERNAL GENITALIA. PSYCH : APPROPRIATE MOOD AND AFFECT. ALERT AWAKE ORIENTED X3 Objective Labs Result Diagrams: 08/21/18 05:23 08/21/18 05:23 Discharge Plan Discharge Plan Patient Disposition: Home Discharge Med Rec/Prescriptions Prescriptions: New levofloxacin [Levaquin] 750 mg tablet 750 mg PO DAILY 10 Days Qty: 10 RF: 0 Continue atorvastatin 40 mg tablet 40 mg PO QPM RF: 0 insulin regular human 100 unit/mL solution 10 units subcut TID RF: 0 lisinopril 5 mg tablet 1 tab PO DAILY RF: 0 insulin NPH isoph U-100 human 100 unit/mL (3 mL) insulin pen 20 units subcut DAILY RF: 0 Discontinued ibuprofen 800 mg tablet 1 tab PO TIDWM RF: 0 Follow up/Referrals: Glory Wilde MD [Primary Care Provider] - (please follow up with your primary care provider after discharge from the hospital) Provider Discharge Instructions Diet: Carb-consistent/Diabetic, Low-fat and Low-cholesterol Skin/Wound/Dressing Care Report to your healthcare provider any signs of infection, such as:: chills, fever, night sweats, increased pain and unusual drainage Visit Report/Discharge Packet Instructions: Urinary Tract Infection, Type 2 Diabetes, Levofloxacin Visit Report Forms: Stroke Signs & Symptoms Discharge Data Primary Care Provider: Glory Wilde Attending Provider: Radha Bocanegra Admit Date/Time: 08/17/18 15:07 Discharges patient from system. Discharge Date/Time: 08/22/18 11:56 Quality VTE Deep Vein Thrombosis/Pulmonary Embolism Present on Admission: No
--- NOTE | 2018-08-22 11:07 | CM.DPC ---
DCP/continued: Received notification from MD in AM rounds that patient is medically stable for discharge. No additional services at home needed. Met with patient and [employer] Message from Medicare signed on 08-23-18 at approximately 11:10am. P: Home today. JAVAD Pitts Discharge Planning/Care Management CM Discharge Assessment Start: 08/20/18 08:03 Freq: Status: Active Protocol: Document 08/20/18 08:03 FRANKLIN (Rec: 08/20/18 08:17 JW [id number]) Discharge Planning Assessment Assigned Rough Patcher JAVAD Banuelos DPOA/Assigned Designee Name Leah Demarco dtr Contact Information [phone] Advance Directives? Yes: DPOA, HEALTH CARE DIRECTIVE History Provided By Family Member Prior Living Arrangements House Household Members family Type of transporation used prior to Relies on Others admit Independent with ADL's No Is patient alert and oriented? Yes Needs Assistance With Bathing Grooming Meal Prep Toileting Managing Medications Home Chores / Shopping Comment Pt can self transfer and ambulates mostly indp. Family has discovered recently that pt has become incontinent and requires addtl. assist when bathing, toileting/hygiene. Pt also requires ongoing support/encouragement to continue taking prescribed medication and follow a Diabetic diet, per dtr. Name of Agency [facility] Faxed Yes Hours / Month 48 Comment Dtr Leah is pt's Individual Provider (IP)/ cg. [facility] CM is Moise. Dtr explains the [facility] hours were recently started. [facility] CM assisting in getting pt briefs for recent incontinence. H+P faxed to [facility]. Barriers to Discharge No Discharge Plan Home Transportation Arrangement Family Additional Comment Need to review option of home health w/pt's dtr. Whiteboard Updated in Patient Room with Yes name and ext. # of Rough Patcher Review Status In Process Please Provide Date Initial DC 08/19/18 Assessment Was Performed Document 08/22/18 11:07 RICHARD (Rec: 08/22/18 11:07 KJS [id number]) Discharge Planning Assessment Assigned Rough PatcherJAVAD Epps DPOA/Assigned Designee Name Leah Demarco dtr Contact Information [phone] Advance Directives? Yes: DPOA, HEALTH CARE DIRECTIVE History Provided By Family Member Prior Living Arrangements House Household Members children Type of transporation used prior to Relies on Others admit Independent with ADL's No Is patient alert and oriented? Yes Needs Assistance With Bathing Grooming Meal Prep Toileting Managing Medications Home Chores / Shopping Comment Pt can self transfer and ambulates mostly indp. Family has discovered recently that pt has become incontinent and requires addtl. assist when bathing, toileting/hygiene. Pt also requires ongoing support/encouragement to continue taking prescribed medication and follow a Diabetic diet, per dtr. Name of Agency [facility] Faxed Yes Hours / Month 48 Comment Dtr Leah is pt's Individual Provider (IP)/ cg. [facility] CM is Moise. Dtr explains the [facility] hours were recently started. [facility] CM assisting in getting pt briefs for recent incontinence. H+P faxed to [facility]. Barriers to Discharge No Discharge Plan Home Transportation Arrangement Family Additional Comment Need to review option of home health w/pt's dtr. Whiteboard Updated in Patient Room with Yes name and ext. # of Rough Patcher Review Status In Process Please Provide Date Initial DC 08/19/18 Assessment Was Performed
[2018-08-22 11:29] VITALS: BP 117/49; PULSE 79; RESP 18; TEMP 37; O2SAT 98
== END 2018-08-22 11:56 | disposition home or self-care (01) | DRG 638 ==
LOC: ED 13:00 → ICU 15:08 → AC 08-21 07:54 → ICU 08-21 07:54
PROVIDERS: Admitting Provider Internal Medicine; Emergency Provider Internal Medicine; PCP Family Medicine; Visit Provider Internal Medicine
DX: E11.10 Type 2 diabetes mellitus with ketoacidosis without coma (principal); N17.9 Acute kidney failure, unspecified; N12 Tubulo-interstitial nephritis, not specified as acute or chronic; Z79.4 Long term (current) use of insulin; B96.20 Unspecified Escherichia coli [E. coli] as the cause of diseases classified elsewhere; D63.8 Anemia in other chronic diseases classified elsewhere; I10 Essential (primary) hypertension; E78.5 Hyperlipidemia, unspecified; M19.90 Unspecified osteoarthritis, unspecified site
CPT/HCPCS: 36415; 36591; 74177; 80048; 80053; 81003; 81015; 82009; 82962; 83036; 83605; 84145; 85025; 87040; 87077; 87086; 87150; 87186; 87205; 87797; 90471; 90656; 93005; 94760; 94762; 96361; 96374; 97116; 97162; 97165; 97530; 97535; 99283; 99285; J1644; J1956; J3480; Q2038; Q9967

== ENCOUNTER → 2020-12-20 14:21 | Outpatient (CLI) | payer OTHER, MEDICAID, SELFPAY ==
[2018-08-17 17:00] VITALS: BMI 32.6
--- NOTE | 2020-12-20 14:26 | DI.RAD.S_ITS ---
PROCEDURE: XR CHEST 2V INDICATIONS: chest TECHNIQUE: 2 views of the chest were acquired. COMPARISON: None. FINDINGS: Surgical changes and devices: None. Lungs and pleura: Linear bibasilar opacities. No pleural effusions or pneumothorax. Mediastinum: Mediastinal contours are normal. Heart size is normal. Bones and chest wall: No suspicious bony abnormalities. Soft tissues appear unremarkable. IMPRESSION: Linear bibasilar opacities, likely atelectasis. Dictated by: Bess Jacobs M.D. on 12/20/2020 at 14:55 Approved by: Bess Jacobs M.D. on 12/20/2020 at 14:55
== END ==
PROVIDERS: PCP Family Medicine; Referring Provider Student in an Organized Health Care Education/Training Program; Visit Provider Student in an Organized Health Care Education/Training Program
DX: N18.6 End stage renal disease (principal); Z11.1 Encounter for screening for respiratory tuberculosis
CPT/HCPCS: 71046

== ENCOUNTER → 2021-04-30 14:11 | Outpatient (CLI) | payer OTHER, MEDICAID, SELFPAY ==
[2018-08-17 17:00] VITALS: BMI 32.6
--- NOTE | 2021-04-30 | DI.ECHO.S_ITS ---
[facility]---------+ [facility] +---------+ : : [address] [place] : : : : [id number] : : : : Phone: [phone] Echocardiogram Report + + :Name: JANIE CORONEL Study Date: 04/30/2021 Height: 65 in : :[facility] ReadingLocation: Weight: 218 lb : : Gender: Female BSA: 2.1 m2 : :: 1945 Age: 76 yrs BP: 141/68 mmHg: :Reason For Study: Cardiomyopathy : :Ordering Physician: Angela : :Jolanta Foster Performed By: Manuelito Mullen : :Referring: ANGELA FOSTER : + + Interpretation Summary 1) Normal left ventricular size, wall motion, and systolic function (EF 55- 60%). 2) Normal right ventricular size and function. 3) No significant valvular abnormalities. 4) No prior Echo available for comparison. Procedure: A two-dimensional transthoracic echocardiogram with color flow and Doppler was performed. The study quality was technically adequate. There is no prior echocardiogram noted for this patient. The patient was in sinus rhythm with heart rates between 90-107 bpm during the exam. Left Ventricle: The left ventricle is normal in size. Left ventricular wall thickness is at the upper limits of normal. Left ventricular systolic function is normal. The ejection fraction is estimated to be 55-60%. There are no focal wall motion abnormalities. Diastolic function could not be accurately assessed due to unobtainable data. Right Ventricle: The right ventricle is normal in size and function. Atria: Both atria are normal in size. There is no Doppler evidence for an interatrial shunt. Mitral Valve: The mitral valve is normal in structure and function. There is no mitral regurgitation noted. Aortic Valve: The aortic valve is normal in structure and function. There is no aortic valve stenosis. No aortic regurgitation is present. Tricuspid Valve: The tricuspid valve is normal in structure and function. No tricuspid regurgitation. Pulmonary artery pressures cannot be estimated because of the lack of a measurable TR jet velocity but the IVC suggests a CVP of around 3 mmHg. Pulmonic Valve: The pulmonic valve is normal in structure and function. There is no pulmonic valvular regurgitation. Great Vessels: The aortic root is normal size. The dimensions of the ascending aorta are normal. The IVC is of normal diameter and collapses greater than 50% with a sniff. This suggests a low right atrial pressure of 3 mm Hg. Pericardium/ Pleura There is no pericardial effusion. There is no pleural effusion. MMode/2D Measurements & Calculations LVIDd: 5.2 cm LVOT diam: 2.2 cm LVIDs: 3.3 cm Ao root diam: 3.5 cm FS: 37.2 % asc Aorta Diam: 3.0 cm IVSd: 1.1 cm LVPWd: 1.0 cm LV paulson. diameter/BSA (cm/m^2): 2.5 LV sys. diameter/BSA (cm/m^2): 1.6 LA A2 area: 16.3 cm2 RA long axis: 4.0 cm LA A4 area: 20.7 cm2 RA area: 12.7 cm2 LA length (vol): 5.5 cm RA vol: 34.3 ml LA vol: 51.8 ml RA : 16.7 ml/m2 LA vol index: 25.3 ml/m2 TAPSE: 2.3 cm Doppler Measurements & Calculations Ao V2 max: 140.2 cm/sec LVOT Max Ki: 104.3 cm/sec Ao V2 mean: 100.6 cm/sec LV V1 max P.4 mmHg Ao max P.9 mmHg LV V1 VTI: 18.6 cm Ao mean P.4 mmHg JENNY(I,D): 2.7 cm2 Ao V2 VTI: 26.6 cm JENNY(V,D): 2.8 cm2 sev ratio: 0.70 JENNY indexed to BSA (cm^2/m^2): 1.3 MV E max ki: 69.9 cm/sec PA V2 max: 115.3 cm/sec MV A max ki: 97.5 cm/sec PA V2 mean: 74.0 cm/sec MV E/A: 0.72 PA mean P.5 mmHg Med Peak E' Ki: 3.9 cm/sec PA pr(Accel): 47.3 mmHg E/E' med: 18.0 Lat Peak E' Ki: 7.3 cm/sec E/E' lat: 9.6 E/e' average: 13.8 MV dec time: 0.25 sec SVALLIE): 70.9 ml Reading Physician:04:30 PM
== END ==
PROVIDERS: Referring Provider Internal Medicine Cardiovascular Disease; Visit Provider Internal Medicine Cardiovascular Disease
DX: I42.9 Cardiomyopathy, unspecified (principal)
CPT/HCPCS: 93306